=== PATIENT | female | born 1995 | race Caucasian/White ===

== ENCOUNTER 2017-04-21 09:51 | Inpatient (IN) | payer OTHER ==
[2017-04-21 10:58] VITALS: BMI 32.8
--- NOTE | 2017-04-21 13:38 | HP ---
COWS - Scale Resting Pulse: 2= [place] 101-120 Sweatin=Flushed/Facial Moisture Restless Observation: 3= Extraneous Movement Pupil Size: 0= Normal to Room Light Bone or Joint Aches: 2= Severe Diffuse Aches Runny Nose/ Eye Tearin= None GI Upset > 30mins: 2= Nausea/Diarrhea Tremor Observation: 2= Slight Tremor Visible Yawning Observation: 1= 1-2x During Session Anxiety or Irritability: 2=Irritable/Anxious Goose Flesh Skin: 0=Smooth Skin COWS Score: 16 CIWA Score - CIWA Score Nausea/Vomitin Muscle Tremors: 4-Moderate,w/Arms Extend Anxiety: 4-Mod. Anxious/Guarded Agitation: 4-Moderately Restless Paroxysmal Sweats: 3 Orientation: 0-Oriented Tacttile Disturbances: 1-Very Mild Itch/Numbness Auditory Disturbances: 0-None Visual Disturbances: 0-None Headache: 1-Very Mild CIWA-Ar Total Score: 20 Admission ROS [facility] - HPI Chief Complaint: I need help, I'm drinking and using heroin too much. I have to stop using. Allergies/Adverse Reactions: Allergies Allergy/AdvReac Type Severity Reaction Status Date / Time Fish Containing Products Allergy Severe Hives Verified 04/21/17 12:20 No Known Drug Allergies Allergy Verified 01/05/15 10:50 Latex, Natural Rubber AdvReac Verified 01/04/15 19:53 History of Present Illness: 22 y/o woman, single (no children), unemployed, domiciled at an apartment owned by her parent, presented to [facility] requesting detox then rehab from alcohol and opioid dependence. Patient stated she was seen in ER at [facility] couple days ago due to withdrawal symptoms and was given methadone 10mg PO once and klonopin 1mg then was discharged. Patient is requesting rehab here at [facility] after she completes detox. As per patient, she has been drinking and using drugs with her boyfriend (boyfriend's parent sent him away to rehab and she doesn't know his whereabouts) since age 18 or 19 and also use with friends. She reports 4 previous detox with last detox 12/2015 at [facility] x 5 days and then transferred to [facility] 28 day rehab. She reports feeling anxious and depressed since start drinking and using drugs and requesting to see a psychiatrist. Exam Limitations: No Limitations - Ebola screening Have you traveled outside of the country in the last 21 days: No (N) Have you had contact with anyone from an Ebola affected area: No Have you been sick,other than usual withdrawal symptoms: No Do you have a fever: No - Review of Systems Constitutional: Chills, Loss of Appetite, Changes in sleep EENT: reports: Tearing Respiratory: reports: No Symptoms reported Cardiac: reports: No Symptoms Reported GI: reports: Diarrhea, Nausea, Poor Appetite : reports: No Symptoms Reported Musculoskeletal: reports: Back Pain, Joint Pain Integumentary: reports: Bruising (bruising righy forearm from blood drawing. Always bruise after blood draw) Neuro: reports: Headache, Tremors Endocrine: reports: No Symptoms Reported Hematology: reports: Anemia, Easy Bleeding Psychiatric: reports: Anxious, Depressed Patient History - Patient Medical History Hx Anemia: Yes Hx Asthma: No Hx Chronic Obstructive Pulmonary Disease (COPD): No Hx Cancer: No Hx Cardiac Disorders: No Hx Congestive Heart Failure: No Hx Hypertension: No Hx Hypercholesterolemia: No Hx Pacemaker: No HX Cerebrovascular Accident: No Hx Seizures: No Hx Dementia: No Hx Diabetes: No Hx Gastrointestinal Disorders: No Hx Liver Disease: No Hx Genitourinary Disorders: No Hx Sexually Transmitted Disorders: No Hx Renal Disease (ESRD): No Hx Thyroid Disease: No Hx Human Immunodeficiency Virus (HIV): No Hx Hepatitis C: No Hx Depression: Yes (depressed for a while since using drugs) Hx Suicide Attempt: No Hx Bipolar Disorder: No Hx Schizophrenia: No - Patient Surgical History Past Surgical History: Yes Hx Neurologic Surgery: No Hx Cataract Extraction: No Hx Cardiac Surgery: No Hx Lung Surgery: No Hx Breast Surgery: No Hx Breast Biopsy: No Hx Abdominal Surgery: No Hx Appendectomy: No Hx Cholecystectomy: No Hx Genitourinary Surgery: Yes (left kidney stent placement 08/2014 for kidney stones, removed in 1-2 wks) Hx Section: No Hx Orthopedic Surgery: No Hx Hysterectomy: No Anesthesia Reaction: No - PPD History Previous Implant?: Yes Documented Results: Negative w/o proof Implanted On Prior R Admission?: Yes Date: 01/06/15 PPD to be Administered?: Yes - Reproductive History Last Menstrual Period: 03/31/17 (has no children) Patient : No - Smoking Cessation Smoking history: Current every day smoker Have you smoked in the past 12 months: Yes Aproximately how many cigarettes per day: 20 Hx Chewing Tobacco Use: No Initiated information on smoking cessation: Yes 'Breaking Loose' booklet given: 04/21/17 - Substance & Tx. History Hx Substance Use: Yes Substance Use Type: Alcohol, Opiates - Substances Abused Heroin Route: Inhalation Frequency: Daily Amount used: 20 BAGS Age of first use: 18 Date of Last Use: 04/21/17 Alcohol Route: Oral Frequency: Daily Amount used: 1-2 BOTTLES WINE Age of first use: 12 Date of Last Use: 04/20/17 Family Disease History - Family Disease History Family Disease History: CA: Grandparent (maternal grandfather from lymphoma; maternal grandmother survivor of breast cancer), Father (lymphoma), Mother (breast cancer x 2 (survivor)) Admission Physical Exam [facility] - Vital Signs Vital Signs: Vital Signs - 24 hr 04/21/17 10:55 Temperature 97.3 F L Pulse Rate 112 H Respiratory 18 Rate Blood Pressure 114/73 - Physical General Appearance: Yes: Within Normal Limits, No Apparent Distress, Appropriately Dressed HEENTM: Yes: Within Normal Limits, Hearing grossly Normal Respiratory: Yes: Within Normal Limits, Chest Non-Tender, Lungs Clear, Normal Breath Sounds Neck: Yes: Within Normal Limits Breast: Yes: Within Normal Limits Cardiology: Yes: S1, S2, Tachycardia (apical rate 108 bpm) Abdominal: Yes: Within Normal Limits, Normal Bowel Sounds, Non Tender, Soft Genitourinary: Yes: Within Normal Limits Back: Yes: Within Normal Limits Musculoskeletal: Yes: Within Normal Limits, full range of Motion, Gait Steady Extremities: Yes: Normal Range of Motion, Tremors Neurological: Yes: Within Normal Limits, 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, Fully Oriented, Alert Integumentary: Yes: Normal Color (except bruising noted to right forearm from blood draw at [facility] couple days ago as per patient) - Diagnostic (1) Anemia Current Visit: Yes Status: Chronic (2) Opioid dependence, uncomplicated Current Visit: Yes Status: Acute (3) Alcohol dependence with uncomplicated withdrawal Current Visit: Yes Status: Acute (4) Nicotine dependence Current Visit: Yes Status: Chronic Cleared for Admission [facility] - Detox or Rehab [facility] Level of Care: Medically Managed Detox Regimen/Protocol: Methadone/Librium S Breath Alcohol Content Breath Alcohol Content: 0 Urine Pregancy Test - Result Urine Test Results: Negative- NO Line Present Urine Drug Screen - Results Drug Screen Negative: No Urine Drug Screen Results: OPI-Opiates, BZO-Benzodiazepines, MTD-Methadone, TCA- Tricyclic Antidepress
[2017-04-21] MEDS ORDERED: MENTHOL/PHENOL 1 EACH UD MM PRN (14:19)
[2017-04-21] MEDS ORDERED: guaiFENesin/D-METHORPHAN HB 10 ML UNIT-DOSE CUPS PO PRN (14:19)
[2017-04-21] MEDS ORDERED: LOPERAMIDE HCL 2 MG CAPSULE PO PRN (14:19)
[2017-04-21] MEDS ORDERED: MAGNESIUM HYDROX 2400MG/30ML ORAL SUSPENSION 30 ML CUP PO PRN (14:19)
[2017-04-21] MEDS ORDERED: MAGNESIUM CITRATE 300 ML BOTTLE PO PRN (14:19)
[2017-04-21] MEDS ORDERED: ACETAMINOPHEN 325 MG TABLET (FP) PO PRN (14:19)
[2017-04-21] MEDS ORDERED: P-EPHED 60MG/TRIPROLIDI 2.5MG TABLET PO PRN (14:19)
[2017-04-21] MEDS ORDERED: MAG HYDROX/AL HYDROX/SIMETH 30 ML UNIT-DOSE CUP PO PRN (14:19)
[2017-04-21] MEDS ORDERED: ONDANSETRON *ODT* 4 MG TABLET SL PRN (14:34)
[2017-04-21] MEDS ORDERED: METHADONE HCL 10 MG TABLET (FOR DETOX USE ONLY) PO ONE ×2 (14:54→23:00)
[2017-04-21] MEDS: NICOTINE 21 MG/24 HOURS TOPICAL PATCH TD SCH (15:01)
[2017-04-21] MEDS: IBUPROFEN 400 MG TABLET (FP) PO PRN (15:06)
[2017-04-21] MEDS: chlordiazePOXIDE HCL 25 MG CAPSULE PO PRN (15:06)
[2017-04-21] MEDS: chlordiazePOXIDE HCL 25 MG CAPSULE PO SCH ×2 (17:16→22:14)
[2017-04-21] MEDS: hydrOXYzine PAMOATE 25 MG CAPSULE (FP) PO PRN (18:30)
[2017-04-21] MEDS: NICOTINE POLACRILEX 2 MG GUM BUC PRN (21:20)
[2017-04-21] MEDS: THIAMINE HCL 100 MG TABLET (FP) PO SCH (22:14)
[2017-04-21 23:13] LABS: URINE APPEARANCE CLEAR; URINE BILIRUBIN NEGATIVE (NEGATIVE); URINE BLOOD NEGATIVE (NEGATIVE); URINE COLOR STRAW; URINE GLUCOSE (UA) NEGATIVE (NEGATIVE); URINE KETONE 1+ (NEGATIVE); URINE LEUK ESTERASE NEGATIVE (NEGATIVE); URINE NITRITE NEGATIVE (NEGATIVE); URINE PROTEIN NEGATIVE (NEGATIVE); URINE UROBILINOGEN NEGATIVE mg/dL (0.2-1.0)
[2017-04-22] MEDS: chlordiazePOXIDE HCL 25 MG CAPSULE PO SCH ×4 (05:56→22:38)
[2017-04-22] MEDS ORDERED: METHADONE HCL 10 MG TABLET (FOR DETOX USE ONLY) PO SCH (10:00)
[2017-04-22 10:42] LABS: HEMATOCRIT 40.5 % (32.4-45.2); HEMOGLOBIN 13.4 GM/dL (10.7-15.3); MCH 29.1 pg (25.7-33.7); MCHC 33.1 g/dl (32.0-36.0); MEAN CELL VOLUME 87.9 fl (80-96); MEAN PLT VOLUME 10.1 fl (7.5-11.1); PLATELET COUNT 315 K/MM3 (134-434); RDW 13.1 % (11.6-15.6); WHITE BLOOD COUNT 9.5 K/mm3 (4.0-10.0)
[2017-04-22] MEDS: PRENATAL VITAMINS W/ FOLIC ACID TABLET (FP) PO SCH (10:50)
[2017-04-22] MEDS: NICOTINE 21 MG/24 HOURS TOPICAL PATCH TD SCH (10:52)
[2017-04-22 10:53] LABS: CHLORIDE 104 mmol/L (98-107); POTASSIUM 3.5 mmol/L (3.5-5.1); SODIUM 138 mmol/L (136-145)
[2017-04-22] MEDS: NICOTINE POLACRILEX 2 MG GUM BUC PRN ×2 (10:54→22:43)
[2017-04-22 11:01] LABS: ALBUMIN 4.3 g/dl (3.4-5.0); ALK PHOS 55 U/L (45-117); ANION GAP 12 (8-16); BILIRUBIN,TOTAL 0.5 mg/dL (0.2-1.0); BLOOD UREA NITROGEN 15 mg/dL (7-18); CALCIUM 8.9 mg/dL (8.5-10.1); CO2 22 mmol/L (21-32); CREATININE 0.8 mg/dL (0.55-1.02); GLUCOSE,RANDOM 112 mg/dL (74-106); SGOT/AST 16 U/L (15-37); SGPT/ALT 18 U/L (12-78)
--- NOTE | 2017-04-22 13:30 | PN ---
[facility] CIWA - CIWA Score Nausea/Vomitin Muscle Tremors: 3 Anxiety: 3 Agitation: 3 Paroxysmal Sweats: 3 Orientation: 0-Oriented Tacttile Disturbances: 0-None Auditory Disturbances: 0-None Visual Disturbances: 0-None Headache: 0-None Present CIWA-Ar Total Score: 15 S COWS - Scale Resting Pulse: 0= [place] 80 or Below Sweatin=Flushed/Facial Moisture Restless Observation: 1= Difficult to Sit Still Pupil Size: 0= Normal to Room Light Bone or Joint Aches: 1= Mild Discomfort Runny Nose/ Eye Tearin= Nasal Congestion GI Upset > 30mins: 1= Stomach Cramp Tremor Observation of Outstretched Hands: 2= Slight Tremor Visible Yawning Observation: 0= None Anxiety or Irritability: 2=Irritable/Anxious Goose Flesh Skin: 0=Smooth Skin COWS Score: 10 [facility] Progress Note (SOAP) Subjective: achy gassy, requesting pati ok tremors Objective: 04/22/17 13:33 Vital Signs Temperature 98.2 F 04/22/17 10:42 Pulse Rate 79 04/22/17 10:42 Respiratory Rate 18 04/22/17 10:42 Blood Pressure 125/80 04/22/17 10:42 O2 Sat by Pulse Oximetry (%) Laboratory Last Values WBC 9.5 K/mm3 (4.0-10.0) 04/22/17 06:00 RBC 4.60 M/mm3 (3.60-5.2) 04/22/17 06:00 Hgb 13.4 GM/dL (10.7-15.3) 04/22/17 06:00 Hct 40.5 % (32.4-45.2) 04/22/17 06:00 MCV 87.9 fl (80-96) 04/22/17 06:00 MCH 29.1 pg (25.7-33.7) 04/22/17 06:00 MCHC 33.1 g/dl (32.0-36.0) 04/22/17 06:00 RDW 13.1 % (11.6-15.6) 04/22/17 06:00 Plt Count 315 K/MM3 (134-434) 04/22/17 06:00 MPV 10.1 fl (7.5-11.1) 04/22/17 06:00 Sodium 138 mmol/L (136-145) 04/22/17 06:00 Potassium 3.5 mmol/L (3.5-5.1) 04/22/17 06:00 Chloride 104 mmol/L (98-107) 04/22/17 06:00 Carbon Dioxide 22 mmol/L (21-32) 04/22/17 06:00 Anion Gap 12 (8-16) 04/22/17 06:00 BUN 15 mg/dL (7-18) 04/22/17 06:00 Creatinine 0.8 mg/dL (0.55-1.02) 04/22/17 06:00 Creat Clearance w eGFR > 60 (>60) 04/22/17 06:00 Random Glucose 112 mg/dL (74-106) H 04/22/17 06:00 Calcium 8.9 mg/dL (8.5-10.1) 04/22/17 06:00 Total Bilirubin 0.5 mg/dL (0.2-1.0) D 04/22/17 06:00 AST 16 U/L (15-37) D 04/22/17 06:00 ALT 18 U/L (12-78) 04/22/17 06:00 Alkaline Phosphatase 55 U/L (45-117) 04/22/17 06:00 Total Protein 8.0 g/dl (6.4-8.2) 04/22/17 06:00 Albumin 4.3 g/dl (3.4-5.0) 04/22/17 06:00 Urine Color Straw 04/21/17 21:00 Urine Appearance Clear 04/21/17 21:00 Urine pH 5.0 (5.0-8.0) 04/21/17 21:00 Ur Specific [place] 1.005 (1.001-1.035) 04/21/17 21:00 Urine Protein Negative (NEGATIVE) 04/21/17 21:00 Urine Glucose (UA) Negative (NEGATIVE) 04/21/17 21:00 Urine Ketones 1+ (NEGATIVE) H 04/21/17 21:00 Urine Blood Negative (NEGATIVE) 04/21/17 21:00 Urine Nitrite Negative (NEGATIVE) 04/21/17 21:00 Urine Bilirubin Negative (NEGATIVE) 04/21/17 21:00 Urine Urobilinogen Negative mg/dL (0.2-1.0) 04/21/17 21:00 Ur Leukocyte Esterase Negative (NEGATIVE) 04/21/17 21:00 labs noted Assessment: 04/22/17 13:34 withdrawal sx Plan: continue detox
[2017-04-22] MEDS: chlordiazePOXIDE HCL 25 MG CAPSULE PO PRN ×2 (15:15→20:01)
--- NOTE | 2017-04-22 17:03 | EKG ---
Test Reason : Blood Pressure : / mmHG Vent. Rate : 105 BPM Atrial Rate : 105 BPM P-R Int : 134 ms QRS Dur : 076 ms QT Int : 346 ms P-R-T Axes : 065 021 031 degrees QTc Int : 457 ms SINUS TACHYCARDIA OTHERWISE NORMAL ECG NO PREVIOUS ECGS AVAILABLE Confirmed by BROOKE GONZALEZ MD ([id number]) on 04/22/2017 5:03:01 PM Referred By: Confirmed By:BROOKE GONZALEZ MD
[2017-04-22] MEDS: hydrOXYzine PAMOATE 25 MG CAPSULE (FP) PO PRN ×2 (17:43→22:40)
--- NOTE | 2017-04-22 18:01 | CONSULT ---
[facility] Psychiatric Consult - Data Date of interview: 04/22/17 Admission source: [facility] Identifying data: Readmission to [facility] for this 22 y/o female seeking detox treatment on for alcohol and heroin dependence.Patient is singlewithout children,unemployed and supported by her parents. Substance Abuse History: Smoking history: Current every day smoker. Have you smoked in the past 12 months: Yes. Aproximately how many cigarettes per day: 20. Hx Chewing Tobacco Use: No. Initiated information on smoking cessation: Yes. 'Breaking Loose' booklet given: 04/21/17. - Substance & Tx. History. Hx Substance Use: Yes. Substance Use Type: Alcohol, Opiates. - Substances Abused. Heroin. Route: Inhalation. Frequency: Daily. Amount used: 20 BAGS. Age of first use: 18. Date of Last Use: 04/21/17. Alcohol. Route: Oral. Frequency: Daily. Amount used: 1-2 BOTTLES WINE. Age of first use: 12. Date of Last Use: 04/20/17 Medical History: Anemia and a recent history of renal stent placement (2014) for kidney stones (no longer in place). Psychiatric History: No history of psychiatric hospitalizations.Patient denies suicide attempts.No prior contact with a psychiatric OPD care provider. Physical/Sexual Abuse/Trauma History: Patient denies. Additional Comment: Urine Drug Screen Results: OPI-Opiates, BZO-Benzodiazepines , MTD-Methadone, TCA-Tricyclic Antidepressant.Noted. Mental Status Exam - Mental Status Exam Alert and Oriented to: Time, Place, Person Cognitive Function: Good Patient Appearance: Well Groomed (short stature,overweight; appears much younger than stated age) Mood: Anxious (mildly), Hopeful Affect: Appropriate, Normal Range Patient Behavior: Fatigued, Appropriate, Cooperative Speech Pattern: Clear, Appropriate Voice Loudness: Normal Thought Process: Intact, Goal Oriented Thought Disorder: Not Present Hallucinations: Denies Suicidal Ideation: Denies Homicidal Ideation: Denies Insight/Judgement: Poor Sleep: Poorly, Difficulty falling asleep Appetite: Fair Muscle strength/Tone: Normal Gait/Station: Normal Psychiatric Findings - Problem List ([place] 1, 2,3) (1) Alcohol dependence with uncomplicated withdrawal Current Visit: Yes Status: Acute (2) Opioid dependence, uncomplicated Current Visit: Yes Status: Acute (3) Nicotine dependence Current Visit: Yes Status: Acute (4) Drug-induced mood disorder Current Visit: Yes Status: Chronic (5) Insomnia Current Visit: Yes Status: Acute - Initial Treatment Plan Initial Treatment Plan: Psychoeducation and support provided in session.Sleep hygiene recommended.Detoxification in progress.Ambien 5 mg po hs prn.Ordered.Patient made aware of maximo of parasomnias (sleep-walking).Consent ( verbal) given for this careplan.Observation.
[2017-04-22] MEDS: ZOLPIDEM TARTRATE 5 MG TABLET PO PRN (22:38)
[2017-04-22] MEDS: IBUPROFEN 400 MG TABLET (FP) PO PRN (22:38)
[2017-04-22] MEDS: THIAMINE HCL 100 MG TABLET (FP) PO SCH (22:39)
[2017-04-23] MEDS: chlordiazePOXIDE HCL 25 MG CAPSULE PO SCH ×2 (05:43→10:32)
[2017-04-23] MEDS: PRENATAL VITAMINS W/ FOLIC ACID TABLET (FP) PO SCH (10:31)
[2017-04-23] MEDS: METHADONE HCL 5 MG TABLET (FOR DETOX USE ONLY) PO SCH (10:32)
[2017-04-23] MEDS: NICOTINE 21 MG/24 HOURS TOPICAL PATCH TD SCH (10:33)
--- NOTE | 2017-04-23 11:07 | PN ---
[facility] CIWA - CIWA Score Nausea/Vomitin-No Nausea/No Vomiting Muscle Tremors: 3 Anxiety: 3 Agitation: 3 Paroxysmal Sweats: 1-Minimal Palms Moist Orientation: 0-Oriented Tacttile Disturbances: 0-None Auditory Disturbances: 0-None Visual Disturbances: 0-None Headache: 0-None Present CIWA-Ar Total Score: 10 [facility] COWS - Scale Resting Pulse: 1= [place] 81-100 Sweatin= Chills/Flushing Restless Observation: 0= Sits Still Pupil Size: 0= Normal to Room Light Bone or Joint Aches: 1= Mild Discomfort Runny Nose/ Eye Tearin= Nasal Congestion GI Upset > 30mins: 1= Stomach Cramp Tremor Observation of Outstretched Hands: 1= Tremor [place], Not Seen Yawning Observation: 0= None Anxiety or Irritability: 1=Feels Anxious/Irritable Goose Flesh Skin: 0=Smooth Skin COWS Score: 7 S Progress Note (SOAP) Subjective: sweat general body ache nasal congestion mild gi upset Objective: 04/23/17 11:08 Vital Signs Temperature 99.5 F 04/23/17 10:00 Pulse Rate 92 H 04/23/17 10:00 Respiratory Rate 20 04/23/17 10:00 Blood Pressure 102/58 04/23/17 10:00 O2 Sat by Pulse Oximetry (%) Laboratory Last Values WBC 9.5 K/mm3 (4.0-10.0) 04/22/17 06:00 RBC 4.60 M/mm3 (3.60-5.2) 04/22/17 06:00 Hgb 13.4 GM/dL (10.7-15.3) 04/22/17 06:00 Hct 40.5 % (32.4-45.2) 04/22/17 06:00 MCV 87.9 fl (80-96) 04/22/17 06:00 MCH 29.1 pg (25.7-33.7) 04/22/17 06:00 MCHC 33.1 g/dl (32.0-36.0) 04/22/17 06:00 RDW 13.1 % (11.6-15.6) 04/22/17 06:00 Plt Count 315 K/MM3 (134-434) 04/22/17 06:00 MPV 10.1 fl (7.5-11.1) 04/22/17 06:00 Sodium 138 mmol/L (136-145) 04/22/17 06:00 Potassium 3.5 mmol/L (3.5-5.1) 04/22/17 06:00 Chloride 104 mmol/L (98-107) 04/22/17 06:00 Carbon Dioxide 22 mmol/L (21-32) 04/22/17 06:00 Anion Gap 12 (8-16) 04/22/17 06:00 BUN 15 mg/dL (7-18) 04/22/17 06:00 Creatinine 0.8 mg/dL (0.55-1.02) 04/22/17 06:00 Creat Clearance w eGFR > 60 (>60) 04/22/17 06:00 Random Glucose 112 mg/dL (74-106) H 04/22/17 06:00 Calcium 8.9 mg/dL (8.5-10.1) 04/22/17 06:00 Total Bilirubin 0.5 mg/dL (0.2-1.0) D 04/22/17 06:00 AST 16 U/L (15-37) D 04/22/17 06:00 ALT 18 U/L (12-78) 04/22/17 06:00 Alkaline Phosphatase 55 U/L (45-117) 04/22/17 06:00 Total Protein 8.0 g/dl (6.4-8.2) 04/22/17 06:00 Albumin 4.3 g/dl (3.4-5.0) 04/22/17 06:00 Urine Color Straw 04/21/17 21:00 Urine Appearance Clear 04/21/17 21:00 Urine pH 5.0 (5.0-8.0) 04/21/17 21:00 Ur Specific [place] 1.005 (1.001-1.035) 04/21/17 21:00 Urine Protein Negative (NEGATIVE) 04/21/17 21:00 Urine Glucose (UA) Negative (NEGATIVE) 04/21/17 21:00 Urine Ketones 1+ (NEGATIVE) H 04/21/17 21:00 Urine Blood Negative (NEGATIVE) 04/21/17 21:00 Urine Nitrite Negative (NEGATIVE) 04/21/17 21:00 Urine Bilirubin Negative (NEGATIVE) 04/21/17 21:00 Urine Urobilinogen Negative mg/dL (0.2-1.0) 04/21/17 21:00 Ur Leukocyte Esterase Negative (NEGATIVE) 04/21/17 21:00 RPR Titer Nonreactive (NONREACTIVE) 04/22/17 06:00 lab noted Assessment: 04/23/17 11:08 withdrawal sx Plan: continue detox
[2017-04-23] MEDS: chlordiazePOXIDE HCL 25 MG CAPSULE PO PRN (14:25)
[2017-04-23] MEDS: chlordiazePOXIDE 5 MG CAPSULE PO SCH ×2 (17:25→22:25)
[2017-04-23] MEDS: hydrOXYzine PAMOATE 25 MG CAPSULE (FP) PO PRN (20:26)
[2017-04-23] MEDS: ZOLPIDEM TARTRATE 5 MG TABLET PO PRN (22:25)
[2017-04-23] MEDS: IBUPROFEN 400 MG TABLET (FP) PO PRN (22:25)
[2017-04-23] MEDS: THIAMINE HCL 100 MG TABLET (FP) PO SCH (22:26)
[2017-04-23] MEDS: NICOTINE POLACRILEX 2 MG GUM BUC PRN (22:26)
[2017-04-24] MEDS: chlordiazePOXIDE 5 MG CAPSULE PO SCH ×2 (05:58→10:25)
[2017-04-24] MEDS: hydrOXYzine PAMOATE 25 MG CAPSULE (FP) PO PRN ×2 (09:07→14:29)
[2017-04-24] MEDS: NICOTINE POLACRILEX 2 MG GUM BUC PRN ×2 (09:08→22:30)
[2017-04-24] MEDS: PRENATAL VITAMINS W/ FOLIC ACID TABLET (FP) PO SCH (10:25)
[2017-04-24] MEDS: METHADONE HCL 5 MG TABLET (FOR DETOX USE ONLY) PO SCH (10:25)
[2017-04-24] MEDS: NICOTINE 21 MG/24 HOURS TOPICAL PATCH TD SCH (10:26)
[2017-04-24] MEDS ORDERED: cloNIDine HCL 0.1 MG TABLET PO ONE (10:29)
--- NOTE | 2017-04-24 10:33 | PN ---
S Progress Note (SOAP) Subjective: ALERT,IRRITABLE,ANXIOUS,INTERRUPTED SLEEP,PAIN IN THE BODY AND BACK,TREMOR Objective: 04/24/17 10:31 Vital Signs Temperature 98.1 F 04/24/17 06:00 Pulse Rate 90 04/24/17 06:00 Respiratory Rate 16 04/24/17 06:00 Blood Pressure 104/70 04/24/17 06:00 O2 Sat by Pulse Oximetry (%) Assessment: 04/24/17 10:32 WITHDRAWAL SYMPTOM Plan: CONTINUE DETOX,FLEXERIL 10 MGS PO TID,CLONIDINE 0.1 MG PO BID,CONTINUE DETOX
[2017-04-24] MEDS: CYCLOBENZAPRINE HCL 10 MG TABLET (FP) PO SCH ×2 (14:29→22:29)
[2017-04-24] MEDS: chlordiazePOXIDE HCL 10 MG CAPSULE PO SCH ×2 (18:00→22:30)
[2017-04-24] MEDS: cloNIDine HCL 0.1 MG TABLET PO SCH (22:29)
[2017-04-24] MEDS: IBUPROFEN 400 MG TABLET (FP) PO PRN (22:29)
[2017-04-24] MEDS: ZOLPIDEM TARTRATE 5 MG TABLET PO PRN (22:29)
[2017-04-24] MEDS: THIAMINE HCL 100 MG TABLET (FP) PO SCH (22:30)
[2017-04-25] MEDS: CYCLOBENZAPRINE HCL 10 MG TABLET (FP) PO SCH ×2 (05:59→14:41)
[2017-04-25] MEDS: chlordiazePOXIDE HCL 10 MG CAPSULE PO SCH ×2 (05:59→10:32)
[2017-04-25] MEDS ORDERED: METHADONE HCL 10 MG TABLET (FOR DETOX USE ONLY) PO SCH (10:00)
[2017-04-25] MEDS: PRENATAL VITAMINS W/ FOLIC ACID TABLET (FP) PO SCH (10:32)
[2017-04-25] MEDS: cloNIDine HCL 0.1 MG TABLET PO SCH (10:32)
[2017-04-25] MEDS: NICOTINE 21 MG/24 HOURS TOPICAL PATCH TD SCH (10:32)
--- NOTE | 2017-04-25 11:36 | PN ---
[facility] Progress Note (SOAP) Subjective: anxiety sweats chills Objective: 04/25/17 11:35 Vital Signs Temperature 98.2 F 04/25/17 10:38 Pulse Rate 98 H 04/25/17 10:38 Respiratory Rate 20 04/25/17 10:38 Blood Pressure 107/61 04/25/17 10:38 O2 Sat by Pulse Oximetry (%) aaox3 ambulating no acute distress Assessment: 04/25/17 11:36 withdrawal sx Plan: continue detox increase fluids d/c in am
[2017-04-25] MEDS: hydrOXYzine PAMOATE 25 MG CAPSULE (FP) PO PRN (14:41)
[2017-04-25] MEDS: NICOTINE POLACRILEX 2 MG GUM BUC PRN (14:43)
[2017-04-25 14:48] VITALS: BP 114/56; PULSE 89; TEMP 97.1
--- NOTE | 2017-04-25 22:02 | DS ---
[facility] Detox Discharge Summary Admission Date: 04/21/17 Discharge Date: 04/25/17 - History Present History: Alcohol Dependence, Opioid Dependence Pertinent Past History: patient insists to leave the detox refuses to wait face to face with the provider - Physical Exam Results Vital Signs: Vital Signs Temperature 97.1 F L 04/25/17 14:48 Pulse Rate 89 04/25/17 14:48 Respiratory Rate 18 04/25/17 14:48 Blood Pressure 114/56 04/25/17 14:48 O2 Sat by Pulse Oximetry (%) Pertinent Admission Physical Exam Findings: withdrawal sx Vital Signs Temperature 97.1 F L 04/25/17 14:48 Pulse Rate 89 04/25/17 14:48 Respiratory Rate 18 04/25/17 14:48 Blood Pressure 114/56 04/25/17 14:48 O2 Sat by Pulse Oximetry (%) Laboratory Last Values WBC 9.5 K/mm3 (4.0-10.0) 04/22/17 06:00 RBC 4.60 M/mm3 (3.60-5.2) 04/22/17 06:00 Hgb 13.4 GM/dL (10.7-15.3) 04/22/17 06:00 Hct 40.5 % (32.4-45.2) 04/22/17 06:00 MCV 87.9 fl (80-96) 04/22/17 06:00 MCH 29.1 pg (25.7-33.7) 04/22/17 06:00 MCHC 33.1 g/dl (32.0-36.0) 04/22/17 06:00 RDW 13.1 % (11.6-15.6) 04/22/17 06:00 Plt Count 315 K/MM3 (134-434) 04/22/17 06:00 MPV 10.1 fl (7.5-11.1) 04/22/17 06:00 Sodium 138 mmol/L (136-145) 04/22/17 06:00 Potassium 3.5 mmol/L (3.5-5.1) 04/22/17 06:00 Chloride 104 mmol/L (98-107) 04/22/17 06:00 Carbon Dioxide 22 mmol/L (21-32) 04/22/17 06:00 Anion Gap 12 (8-16) 04/22/17 06:00 BUN 15 mg/dL (7-18) 04/22/17 06:00 Creatinine 0.8 mg/dL (0.55-1.02) 04/22/17 06:00 Creat Clearance w eGFR > 60 (>60) 04/22/17 06:00 Random Glucose 112 mg/dL (74-106) H 04/22/17 06:00 Calcium 8.9 mg/dL (8.5-10.1) 04/22/17 06:00 Total Bilirubin 0.5 mg/dL (0.2-1.0) D 04/22/17 06:00 AST 16 U/L (15-37) D 04/22/17 06:00 ALT 18 U/L (12-78) 04/22/17 06:00 Alkaline Phosphatase 55 U/L (45-117) 04/22/17 06:00 Total Protein 8.0 g/dl (6.4-8.2) 04/22/17 06:00 Albumin 4.3 g/dl (3.4-5.0) 04/22/17 06:00 Urine Color Straw 04/21/17 21:00 Urine Appearance Clear 04/21/17 21:00 Urine pH 5.0 (5.0-8.0) 04/21/17 21:00 Ur Specific [place] 1.005 (1.001-1.035) 04/21/17 21:00 Urine Protein Negative (NEGATIVE) 04/21/17 21:00 Urine Glucose (UA) Negative (NEGATIVE) 04/21/17 21:00 Urine Ketones 1+ (NEGATIVE) H 04/21/17 21:00 Urine Blood Negative (NEGATIVE) 04/21/17 21:00 Urine Nitrite Negative (NEGATIVE) 04/21/17 21:00 Urine Bilirubin Negative (NEGATIVE) 04/21/17 21:00 Urine Urobilinogen Negative mg/dL (0.2-1.0) 04/21/17 21:00 Ur Leukocyte Esterase Negative (NEGATIVE) 04/21/17 21:00 RPR Titer Nonreactive (NONREACTIVE) 04/22/17 06:00 lab noted - Treatment Hospital Course: Detox Protocol Followed, Responded well - Medication Discharge Medications: Ambulatory Orders NK [No Known Home Medication] 04/21/17 - AMA Did Patient Leave Against Medical Advice: Yes
[2017-04-26] MEDS ORDERED: METHADONE HCL 5 MG TABLET (FOR DETOX USE ONLY) PO SCH (06:00)
== END 2017-04-25 19:25 | disposition left against medical advice (07) | DRG 770 ==
LOC: YASAS 09:51 → Y6N 13:15
PROVIDERS: ADMIT Internal Medicine; ATTEND Internal Medicine
PROC: HZ2ZZZZ Detoxification Services for Substance Abuse Treatment (ICD-10-PCS; principal; 2017-04-21)
DX: F11.23 Opioid dependence with withdrawal (principal); F10.230 Alcohol dependence with withdrawal, uncomplicated; F12.20 Cannabis dependence, uncomplicated; F17.210 Nicotine dependence, cigarettes, uncomplicated; F19.24 Other psychoactive substance dependence with psychoactive substance-induced mood disorder; R00.0 Tachycardia, unspecified; G47.00 Insomnia, unspecified; D64.9 Anemia, unspecified; Z96.0 Presence of urogenital implants; Z91.013 Allergy to seafood; Z91.040 Latex allergy status
CPT/HCPCS: 36415; 80053; 81003; 85027; 86593; 93005; 93010

== ENCOUNTER 2017-05-15 18:11 | Inpatient (IN) | payer OTHER ==
[2017-05-15 19:03] VITALS: BMI 31.1
--- NOTE | 2017-05-15 21:06 | HP ---
COWS - Scale Resting Pulse: 1= [place] 81-100 Sweatin=Flushed/Facial Moisture Restless Observation: 1= Difficult to Sit Still Pupil Size: 1= Pupils >than Normal Bone or Joint Aches: 4=Acute Joint/Muscle Pain Runny Nose/ Eye Tearin= Runny Nose/Eyes GI Upset > 30mins: 2= Nausea/Diarrhea (nausea, no vomiting) Tremor Observation: 2= Slight Tremor Visible Yawning Observation: 1= 1-2x During Session Anxiety or Irritability: 2=Irritable/Anxious Goose Flesh Skin: 0=Smooth Skin COWS Score: 18 Admission ROS [facility] Chief Complaint: Heroin withdrawal symptoms Allergies/Adverse Reactions: Allergies Allergy/AdvReac Type Severity Reaction Status Date / Time Fish Containing Products Allergy Severe Hives Verified 05/15/17 20:09 No Known Drug Allergies Allergy Verified 05/15/17 20:09 Latex, Natural Rubber AdvReac Verified 05/15/17 20:09 History of Present Illness: 22 years old female with 3 years of heroin dependence is seeking admission to detox. Patient has been in previous detox and reports insignificant period of sobriety. Patient has past medical history of anemia, anxiety and depression. She denies suicide attempt and suicidal ideation at this time. Exam Limitations: No Limitations - Ebola screening Have you traveled outside of the country in the last 21 days: No Have you had contact with anyone from an Ebola affected area: No Have you been sick,other than usual withdrawal symptoms: No Do you have a fever: No - Review of Systems Constitutional: Chills, Loss of Appetite, Malaise, Night Sweats, Changes in sleep EENT: reports: No Symptoms Reported Respiratory: reports: No Symptoms reported Cardiac: reports: No Symptoms Reported GI: reports: Nausea, Poor Appetite, Poor Fluid Intake, Abdominal cramping : reports: No Symptoms Reported Musculoskeletal: reports: Back Pain, Muscle Pain, Muscle Weakness, Neck Pain Integumentary: reports: Flushing Neuro: reports: Headache, Tingling, Tremors Endocrine: reports: No Symptoms Reported Hematology: reports: No Symptoms Reported Psychiatric: reports: Mood/Affect Appropiate, Orientated x3, Agitated, Anxious Other Systems: Reviewed and Negative Patient History - Patient Medical History Hx Anemia: Yes Hx Asthma: No Hx Chronic Obstructive Pulmonary Disease (COPD): No Hx Cancer: No Hx Cardiac Disorders: No Hx Congestive Heart Failure: No Hx Hypertension: No Hx Hypercholesterolemia: No Hx Pacemaker: No HX Cerebrovascular Accident: No Hx Seizures: No Hx Dementia: No Hx Diabetes: No Hx Gastrointestinal Disorders: No Hx Liver Disease: No Hx Genitourinary Disorders: No Hx Sexually Transmitted Disorders: No Hx Renal Disease (ESRD): No Hx Thyroid Disease: No Hx Human Immunodeficiency Virus (HIV): No Hx Hepatitis C: No Hx Depression: Yes (depressed for a while since using drugs) Hx Suicide Attempt: No (Denies suicidal ideation at this time) Hx Bipolar Disorder: No Hx Schizophrenia: No - Patient Surgical History Past Surgical History: Yes Hx Neurologic Surgery: No Hx Cataract Extraction: No Hx Cardiac Surgery: No Hx Lung Surgery: No Hx Breast Surgery: No Hx Breast Biopsy: No Hx Abdominal Surgery: No Hx Appendectomy: No Hx Cholecystectomy: No Hx Genitourinary Surgery: Yes (left kidney stent placement 08/2014 for kidney stones, removed in 1-2 wks) Hx Section: No Hx Orthopedic Surgery: No Hx Hysterectomy: No Anesthesia Reaction: No - PPD History Previous Implant?: Yes Documented Results: Negative w/proof Date: 04/23/17 PPD to be Administered?: No - Reproductive History Last Menstrual Period: 05/02/17 Patient : No - Smoking Cessation Smoking history: Current every day smoker Have you smoked in the past 12 months: Yes Aproximately how many cigarettes per day: 20 Hx Chewing Tobacco Use: No Initiated information on smoking cessation: Yes 'Breaking Loose' booklet given: 05/15/17 - Substance & Tx. History Hx Alcohol Use: No Hx Substance Use: Yes Substance Use Type: Heroin Hx Substance Use Treatment: Yes ([facility]) - Substances Abused Heroin Route: Inhalation Frequency: Daily Amount used: 20 bags Age of first use: 18 Date of Last Use: 05/14/17 Family Disease History - Family Disease History Family Disease History: CA: Grandparent (maternal grandfather from lymphoma; maternal grandmother survivor of breast cancer), Father (lymphoma), Mother (breast cancer x 2 (survivor)) Admission Physical Exam BHS - Vital Signs Vital Signs: Vital Signs - 24 hr 05/15/17 19:01 Temperature 97.7 F Pulse Rate 98 H Respiratory 18 Rate Blood Pressure 130/84 - Physical General Appearance: Yes: Moderate Distress, Tremorous, Irritable, Sweating, Anxious HEENTM: Yes: EOMI, Normal Voice, PAUL Respiratory: Yes: Lungs Clear, Normal Breath Sounds, No Respiratory Distress Neck: Yes: Supple Breast: Yes: Breast Exam Deferred Cardiology: Yes: Regular Rhythm, Regular Rate, S1, S2 Abdominal: Yes: Normal Bowel Sounds, Soft Genitourinary: Yes: Within Normal Limits Back: Yes: Normal Inspection Musculoskeletal: Yes: Back pain, Muscle Pain Extremities: Yes: Tremors Neurological: Yes: Alert, Normal Mood/Affect Integumentary: Yes: Warm Lymphatic: Yes: Within Normal Limits - Diagnostic (1) Opioid dependence with withdrawal Current Visit: Yes Status: Chronic (2) Anxiety Current Visit: Yes Status: Chronic (3) Depression Current Visit: Yes Status: Chronic (4) Nicotine dependence Current Visit: Yes Status: Chronic Qualifiers: Nicotine product type: cigarettes Substance use status: uncomplicated Qualified Code(s): F17.210 - Nicotine dependence, cigarettes, uncomplicated Cleared for Admission [facility] - Detox or Rehab [facility] Level of Care: Medically Managed Detox Regimen/Protocol: Methadone [facility] Breath Alcohol Content Breath Alcohol Content: 0 Urine Pregancy Test - Result Urine Test Results: Negative- NO Line Present Urine Drug Screen - Results Drug Screen Negative: No Urine Drug Screen Results: OPI-Opiates, BZO-Benzodiazepines
[2017-05-15] MEDS ORDERED: LOPERAMIDE HCL 2 MG CAPSULE PO PRN (21:15)
[2017-05-15] MEDS ORDERED: P-EPHED 60MG/TRIPROLIDI 2.5MG TABLET PO PRN (21:15)
[2017-05-15] MEDS ORDERED: guaiFENesin/D-METHORPHAN HB 10 ML UNIT-DOSE CUPS PO PRN (21:15)
[2017-05-15] MEDS ORDERED: MAGNESIUM HYDROX 2400MG/30ML ORAL SUSPENSION 30 ML CUP PO PRN (21:15)
[2017-05-15] MEDS ORDERED: IBUPROFEN 400 MG TABLET (FP) PO PRN (21:15)
[2017-05-15] MEDS ORDERED: NICOTINE POLACRILEX 2 MG GUM BC PRN (21:15)
[2017-05-15] MEDS ORDERED: MAG HYDROX/AL HYDROX/SIMETH 30 ML UNIT-DOSE CUP PO PRN (21:15)
[2017-05-15] MEDS ORDERED: METHADONE HCL 10 MG TABLET (FOR DETOX USE ONLY) PO ONE ×2 (21:15→23:00)
[2017-05-15] MEDS ORDERED: MAGNESIUM CITRATE 300 ML BOTTLE PO PRN (21:15)
[2017-05-15] MEDS ORDERED: MENTHOL/PHENOL 1 EACH UD MM PRN (21:15)
[2017-05-15] MEDS ORDERED: ACETAMINOPHEN 325 MG TABLET (FP) PO PRN (21:15)
[2017-05-15] MEDS ORDERED: THIAMINE HCL 100 MG TABLET (FP) PO SCH (22:00)
[2017-05-15 23:22] LABS: URINE APPEARANCE CLEAR; URINE BILIRUBIN NEGATIVE (NEGATIVE); URINE BLOOD NEGATIVE (NEGATIVE); URINE COLOR STRAW; URINE GLUCOSE (UA) NEGATIVE (NEGATIVE); URINE KETONE NEGATIVE (NEGATIVE); URINE LEUK ESTERASE NEGATIVE (NEGATIVE); URINE NITRITE NEGATIVE (NEGATIVE); URINE PROTEIN NEGATIVE (NEGATIVE); URINE UROBILINOGEN NEGATIVE mg/dL (0.2-1.0)
[2017-05-15] MEDS: diazePAM 5 MG TABLET PO PRN (23:36)
[2017-05-16] MEDS: diazePAM 5 MG TABLET PO PRN (05:41)
[2017-05-16] MEDS ORDERED: CYCLOBENZAPRINE HCL 10 MG TABLET (FP) PO PRN (08:58)
--- NOTE | 2017-05-16 09:07 | PN ---
BHS COWS - Scale Resting Pulse: 0= [place] 80 or Below Sweatin= Chills/Flushing Restless Observation: 3= Extraneous Movement Pupil Size: 1= Pupils >than Normal Bone or Joint Aches: 2= Severe Diffuse Aches Runny Nose/ Eye Tearin= Runny Nose/Eyes GI Upset > 30mins: 3= Vomiting/Diarrhea Tremor Observation of Outstretched Hands: 2= Slight Tremor Visible Yawning Observation: 1= 1-2x During Session Anxiety or Irritability: 2=Irritable/Anxious Goose Flesh Skin: 0=Smooth Skin COWS Score: 17 BHS Progress Note (SOAP) Subjective: alert,irritable,anxious,pain in the body and back,tremor,interrupted sleep, Objective: 05/16/17 09:05 Vital Signs Temperature 97.9 F 05/16/17 06:00 Pulse Rate 67 05/16/17 06:00 Respiratory Rate 18 05/16/17 06:00 Blood Pressure 96/55 05/16/17 06:00 O2 Sat by Pulse Oximetry (%) ekg nsr,normal ecg Laboratory Last Values Urine Color Straw 05/15/17 23:05 Urine Appearance Clear 05/15/17 23:05 Urine pH 7.0 (5.0-8.0) D 05/15/17 23:05 Ur Specific [place] 1.010 (1.001-1.035) 05/15/17 23:05 Urine Protein Negative (NEGATIVE) 05/15/17 23:05 Urine Glucose (UA) Negative (NEGATIVE) 05/15/17 23:05 Urine Ketones Negative (NEGATIVE) 05/15/17 23:05 Urine Blood Negative (NEGATIVE) 05/15/17 23:05 Urine Nitrite Negative (NEGATIVE) 05/15/17 23:05 Urine Bilirubin Negative (NEGATIVE) 05/15/17 23:05 Urine Urobilinogen Negative mg/dL (0.2-1.0) 05/15/17 23:05 Ur Leukocyte Esterase Negative (NEGATIVE) 05/15/17 23:05 labs pending Assessment: 05/16/17 09:06 withdrawal symptom Plan: continue detox
[2017-05-16] MEDS ORDERED: cloNIDine HCL 0.1 MG TABLET PO SCH (10:00)
[2017-05-16] MEDS ORDERED: METHADONE HCL 10 MG TABLET (FOR DETOX USE ONLY) PO ONE (10:00)
[2017-05-16] MEDS ORDERED: PRENATAL VITAMINS W/ FOLIC ACID TABLET (FP) PO SCH (10:00)
[2017-05-16] MEDS ORDERED: NICOTINE 14 MG/24 HOURS TOPICAL PATCH TD SCH (10:00)
[2017-05-16 10:26] LABS: HEMATOCRIT 43.5 % (32.4-45.2); HEMOGLOBIN 14.2 GM/dL (10.7-15.3); MCH 28.9 pg (25.7-33.7); MCHC 32.7 g/dl (32.0-36.0); MEAN CELL VOLUME 88.5 fl (80-96); MEAN PLT VOLUME 9.7 fl (7.5-11.1); PLATELET COUNT 359 K/MM3 (134-434); RBC 4.91 M/mm3 (3.60-5.2); RDW 13.6 % (11.6-15.6); WHITE BLOOD COUNT 9.8 K/mm3 (4.0-10.0)
[2017-05-16 10:27] LABS: CHLORIDE 101 mmol/L (98-107); POTASSIUM 3.8 mmol/L (3.5-5.1); SODIUM 138 mmol/L (136-145)
[2017-05-16 10:35] LABS: ALBUMIN 4.3 g/dl (3.4-5.0); ALK PHOS 51 U/L (45-117); ANION GAP 7 (8-16); BILIRUBIN,TOTAL 0.3 mg/dL (0.2-1.0); BLOOD UREA NITROGEN 9 mg/dL (7-18); CALCIUM 9.8 mg/dL (8.5-10.1); CO2 30 mmol/L (21-32); CREATININE 0.6 mg/dL (0.55-1.02); GLUCOSE,RANDOM 51 mg/dL (74-106); SGOT/AST 12 U/L (15-37); SGPT/ALT 20 U/L (12-78); TOT PROT 7.8 g/dl (6.4-8.2)
--- NOTE | 2017-05-16 10:54 | PN ---
S Progress Note Note: PATIENT DID NOT WANT TO COMPLETE TREATMENT,SIGNED RELEASE AMA,SEEN BY COUNSELOR
--- NOTE | 2017-05-16 10:57 | DS ---
[facility] Detox Discharge Summary Admission Date: 05/15/17 Discharge Date: 05/16/17 - History Present History: Opioid Dependence Additional Comments: PATIENT DID NOT WANT TO COMPLETE TREATMENT,SIGNED RELEASE AMA,SEEN BY COUNSELOR Pertinent Past History: NICOTINE DEPENDENCE ANXIETY AND DEPRESSION - Physical Exam Results Vital Signs: Vital Signs Temperature 97.9 F 05/16/17 06:00 Pulse Rate 67 05/16/17 06:00 Respiratory Rate 18 05/16/17 06:00 Blood Pressure 96/55 05/16/17 06:00 O2 Sat by Pulse Oximetry (%) - Medication Discharge Medications: Ambulatory Orders NK [No Known Home Medication] 04/21/17 - Diagnosis (1) Opioid dependence with withdrawal Current Visit: Yes Status: Chronic (2) Nicotine dependence Current Visit: Yes Status: Chronic Qualifiers: Nicotine product type: cigarettes Substance use status: uncomplicated Qualified Code(s): F17.210 - Nicotine dependence, cigarettes, uncomplicated (3) Anxiety Current Visit: Yes Status: Chronic (4) Depression Current Visit: Yes Status: Chronic - AMA Did Patient Leave Against Medical Advice: Yes
[2017-05-16 11:00] VITALS: BP 125/72; PULSE 79; TEMP 98.1
--- NOTE | 2017-05-16 11:29 | PN ---
BHS Progress Note Note: Psychiatric Nurse Practitioner note: Wallpaper Inspector And Shipper informed by staff that patient left AMA. Therefore patient was not seen by Psychiatric Nurse Practitioner.
[2017-05-17] MEDS ORDERED: METHADONE HCL 5 MG TABLET (FOR DETOX USE ONLY) PO ONE (10:00)
--- NOTE | 2017-05-17 10:54 | EKG ---
Test Reason : Blood Pressure : / mmHG Vent. Rate : 082 BPM Atrial Rate : 082 BPM P-R Int : 160 ms QRS Dur : 076 ms QT Int : 392 ms P-R-T Axes : 061 026 025 degrees QTc Int : 457 ms NORMAL SINUS RHYTHM NORMAL ECG WHEN COMPARED WITH ECG OF 21-APR-2017 15:15, NO SIGNIFICANT CHANGE WAS FOUND Confirmed by ARNOLDO QUARLES MD ([id number]) on 05/17/2017 10:54:33 AM Referred By: Confirmed By:ARNOLDO QUARLES MD
[2017-05-18] MEDS ORDERED: METHADONE HCL 5 MG TABLET (FOR DETOX USE ONLY) PO ONE (10:00)
[2017-05-19] MEDS ORDERED: METHADONE HCL 10 MG TABLET (FOR DETOX USE ONLY) PO ONE (10:00)
[2017-05-20] MEDS ORDERED: METHADONE HCL 5 MG TABLET (FOR DETOX USE ONLY) PO ONE (06:00)
== END 2017-05-16 10:07 | disposition left against medical advice (07) | DRG 861 ==
LOC: YASAS 18:11 → Y6N 21:26
PROVIDERS: ADMIT Internal Medicine; ATTEND Internal Medicine
PROC: HZ2ZZZZ Detoxification Services for Substance Abuse Treatment (ICD-10-PCS; principal; 2017-05-15)
DX: F17.210 Nicotine dependence, cigarettes, uncomplicated (principal); F41.9 Anxiety disorder, unspecified; F32.9 Major depressive disorder, single episode, unspecified; Z91.013 Allergy to seafood; Z91.040 Latex allergy status
CPT/HCPCS: 36415; 80053; 81003; 85027; 86593; 93005; 93010

== ENCOUNTER 2017-10-18 12:42 | Inpatient (IN) | payer OTHER ==
[2017-10-18 16:31] VITALS: BMI 30.2
--- NOTE | 2017-10-18 17:18 | HP ---
Admission [facility] Chief Complaint: opioid rehabilitation Allergies/Adverse Reactions: Allergies Allergy/AdvReac Type Severity Reaction Status Date / Time Fish Containing Products Allergy Severe Hives Verified 10/18/17 16:47 No Known Drug Allergies Allergy Verified 10/18/17 16:47 Latex, Natural Rubber AdvReac Verified 10/18/17 16:47 History of Present Illness: 22 yo female with hx of opioid and nicotine dependence is here is here [facility]. Last detox at [facility] and was discharged yesterday. PMHX: anxiety. Denies suicidal / homicidal ideation, denies hx of suicide attempt. Longets period of sobriety 5.5 months. Exam Limitations: No Limitations - Ebola screening Have you traveled outside of the country in the last 21 days: No (N) Have you had contact with anyone from an Ebola affected area: No Have you been sick,other than usual withdrawal symptoms: No Do you have a fever: No - Review of Systems Constitutional: Changes in sleep EENT: reports: No Symptoms Reported Respiratory: reports: No Symptoms reported Cardiac: reports: No Symptoms Reported GI: reports: Nausea, Poor Appetite, Poor Fluid Intake : reports: No Symptoms Reported Musculoskeletal: reports: Joint Pain (left le) Integumentary: reports: No Symptoms Reported Neuro: reports: Headache Endocrine: reports: Increased Thirst Hematology: reports: No Symptoms Reported Psychiatric: reports: Orientated x3, Anxious Other Systems: Reviewed and Negative Patient History - Patient Medical History Hx Anemia: Yes Hx Asthma: No Hx Chronic Obstructive Pulmonary Disease (COPD): No Hx Cancer: No Hx Cardiac Disorders: No Hx Congestive Heart Failure: No Hx Hypertension: No Hx Hypercholesterolemia: No Hx Pacemaker: No HX Cerebrovascular Accident: No Hx Seizures: No Hx Dementia: No Hx Diabetes: No Hx Gastrointestinal Disorders: No Hx Liver Disease: No Hx Genitourinary Disorders: No Hx Sexually Transmitted Disorders: No Hx Renal Disease (ESRD): No Hx Thyroid Disease: No Hx Human Immunodeficiency Virus (HIV): No Hx Hepatitis C: No Hx Depression: Yes (depressed for a while since using drugs) Hx Suicide Attempt: No (Denies suicidal ideation at this time) Hx Bipolar Disorder: No Hx Schizophrenia: No - Patient Surgical History Past Surgical History: Yes Hx Neurologic Surgery: No Hx Cataract Extraction: No Hx Cardiac Surgery: No Hx Lung Surgery: No Hx Breast Surgery: No Hx Breast Biopsy: No Hx Abdominal Surgery: No Hx Appendectomy: No Hx Cholecystectomy: No Hx Genitourinary Surgery: Yes (left kidney stent placement 08/2014 for kidney stones, removed in 1-2 wks) Hx Section: No Hx Orthopedic Surgery: No Hx Hysterectomy: No Anesthesia Reaction: No - PPD History Documented Results: Negative w/proof Date: 04/23/17 PPD to be Administered?: Yes - Reproductive History Patient is a Female of Child Bearing Age (11 -55 yrs old): Yes Last Menstrual Period: 09/15/17 Patient : No - Smoking Cessation Smoking history: Current every day smoker Have you smoked in the past 12 months: Yes Aproximately how many cigarettes per day: 20 Hx Chewing Tobacco Use: No Initiated information on smoking cessation: Yes 'Breaking Loose' booklet given: 10/18/17 - Substance & Tx. History Hx Alcohol Use: Yes Hx Substance Use: Yes Substance Use Type: Heroin Hx Substance Use Treatment: Yes (ast detox at [facility] and was discharged yesterday) - Substances Abused Heroin Route: Inhalation Frequency: Daily Amount used: 2-5 bags Age of first use: 19 Date of Last Use: 10/18/17 Family Disease History - Family Disease History Family Disease History: [place]: Grandparent (maternal grandfather from lymphoma; maternal grandmother survivor of breast cancer), Father (lymphoma), Mother (breast cancer x 2 (survivor)) Admission Physical Exam S - Vital Signs Vital Signs: Vital Signs - 24 hr 10/18/17 16:29 Temperature 99 F Pulse Rate 118 H Respiratory 18 Rate Blood Pressure 139/90 - Physical General Appearance: Yes: Nourished, Appropriately Dressed, Anxious HEENTM: Yes: Hearing grossly Normal, Normal ENT Inspection, Normocephalic, Normal Voice, PAUL, Pharynx Normal, Tm's normal Respiratory: Yes: Chest Non-Tender, Lungs Clear, Normal Breath Sounds, No Respiratory Distress, No Accessory Muscle Use Neck: Yes: No masses,lesions,Nodules, Trachea in good position Breast: Yes: Breast Exam Deferred Cardiology: Yes: Regular Rhythm, Regular Rate Abdominal: Yes: Normal Bowel Sounds, Non Tender, Flat, Soft Genitourinary: Yes: Within Normal Limits Back: Yes: Normal Inspection Musculoskeletal: Yes: full range of Motion, Gait Steady, Pelvis Stable Extremities: Yes: Normal Capillary Refill, Normal Inspection, Normal Range of Motion, Non-Tender Neurological: Yes: sizing machine operator II-XII NML intact, Fully Oriented, Alert, Motor Strength 5/5, Depressed Affect Integumentary: Yes: Normal Color, Warm, Moist Lymphatic: Yes: Within Normal Limits - Diagnostic (1) Anxiety Current Visit: Yes Status: Acute (2) Nicotine dependence Current Visit: Yes Status: Chronic Qualifiers: Nicotine product type: cigarettes Substance use status: uncomplicated Qualified Code(s): F17.210 - Nicotine dependence, cigarettes, uncomplicated (3) Opioid dependence, uncomplicated Current Visit: Yes Status: Acute BHS Breath Alcohol Content Breath Alcohol Content: 0 Urine Pregancy Test - Result Urine Test Results: Negative- NO Line Present Urine Drug Screen - Results Drug Screen Negative: No Urine Drug Screen Results: OPI-Opiates Inpatient Rehab Admission - Initial Determination Are CD services needed?: Yes Free of communicable disease: Yes Not in need of hospitalization: Yes - Rehab Admission Criteria Previous failed treatment: Yes Poor recovery environment: Yes Comorbidities: Yes Lacks judgement: Yes Patient is meeting Inpatient Rehab admission criteria:: Yes
[2017-10-18] MEDS ORDERED: LOPERAMIDE HCL 2 MG CAPSULE PO PRN (17:21)
[2017-10-18] MEDS ORDERED: MAG HYDROX/AL HYDROX/SIMETH 30 ML UNIT-DOSE CUP PO PRN (17:21)
[2017-10-18] MEDS ORDERED: IBUPROFEN 400 MG TABLET (FP) PO PRN (17:21)
[2017-10-18] MEDS ORDERED: MAGNESIUM CITRATE 300 ML BOTTLE PO PRN (17:21)
[2017-10-18] MEDS ORDERED: guaiFENesin/D-METHORPHAN HB 10 ML UNIT-DOSE CUPS PO PRN (17:21)
[2017-10-18] MEDS ORDERED: MAGNESIUM HYDROX 2400MG/30ML ORAL SUSPENSION 30 ML CUP PO PRN (17:21)
[2017-10-18] MEDS ORDERED: MENTHOL/PHENOL 1 EACH UD MM PRN (17:21)
[2017-10-18] MEDS ORDERED: P-EPHED 60MG/TRIPROLIDI 2.5MG TABLET PO PRN (17:21)
[2017-10-18] MEDS ORDERED: ACETAMINOPHEN 325 MG TABLET (FP) PO PRN (17:21)
[2017-10-18] MEDS ORDERED: ONDANSETRON *ODT* 4 MG TABLET SL PRN (17:21)
[2017-10-18] MEDS ORDERED: cloNIDine HCL 0.1 MG TABLET PO ONE (19:00)
--- NOTE | 2017-10-18 20:29 | PN ---
S Progress Note Note: Psychiatry Attending's stationary equipment mechanic note : Informed of arrival of patient on . Asked for orders for buspirone. No urgency.Medication to be ordered in AM. After evaluation by unit psychiatrist.
[2017-10-18] MEDS: THIAMINE HCL 100 MG TABLET (FP) PO SCH (21:32)
[2017-10-18] MEDS: MELATONIN 5 MG TABLETS PO PRN (21:32)
[2017-10-18] MEDS: hydrOXYzine PAMOATE 50 MG CAPSULE (FP) PO PRN (21:32)
[2017-10-18] MEDS: NICOTINE POLACRILEX 2 MG GUM BC PRN (21:33)
[2017-10-19] MEDS: NICOTINE 21 MG/24 HOURS TOPICAL PATCH TD SCH (09:13)
[2017-10-19] MEDS: PRENATAL VITAMINS W/ FOLIC ACID TABLET (FP) PO SCH (09:13)
[2017-10-19] MEDS: NICOTINE POLACRILEX 2 MG GUM BC PRN (09:15)
[2017-10-19 10:15] LABS: HEMATOCRIT 39.3 % (32.4-45.2); HEMOGLOBIN 13.1 GM/dL (10.7-15.3); MCH 29.2 pg (25.7-33.7); MCHC 33.4 g/dl (32.0-36.0); MEAN CELL VOLUME 87.3 fl (80-96); MEAN PLT VOLUME 11.5 fl (7.5-11.1); PLATELET COUNT 286 K/MM3 (134-434); RDW 13.5 % (11.6-15.6); WHITE BLOOD COUNT 7.2 K/mm3 (4.0-10.0)
[2017-10-19 10:29] LABS: CHLORIDE 103 mmol/L (98-107); SODIUM 140 mmol/L (136-145)
[2017-10-19 10:54] LABS: ALBUMIN 3.1 g/dl (3.4-5.0); ALK PHOS 42 U/L (45-117); ANION GAP 9 (8-16); BILIRUBIN,TOTAL 0.2 mg/dL (0.2-1.0); BLOOD UREA NITROGEN 8 mg/dL (7-18); CALCIUM 8.7 mg/dL (8.5-10.1); CO2 28 mmol/L (21-32); CREATININE 0.5 mg/dL (0.55-1.02); GLUCOSE,RANDOM 85 mg/dL (74-106); SGOT/AST 12 U/L (15-37); SGPT/ALT 14 U/L (12-78); TOT PROT 6.4 g/dl (6.4-8.2)
--- NOTE | 2017-10-19 12:11 | EKG ---
Test Reason : Blood Pressure : / mmHG Vent. Rate : 077 BPM Atrial Rate : 077 BPM P-R Int : 138 ms QRS Dur : 072 ms QT Int : 376 ms P-R-T Axes : 051 033 036 degrees QTc Int : 425 ms SINUS RHYTHM WITH OCCASIONAL PREMATURE VENTRICULAR COMPLEXES OTHERWISE NORMAL ECG WHEN COMPARED WITH ECG OF 15-MAY-2017 23:47, PREMATURE VENTRICULAR COMPLEXES ARE NOW PRESENT Confirmed by CHINO KOO, ANTONIO ([id number]) on 10/19/2017 12:11:06 PM Referred By: Confirmed By:ANTONIO MAGANA MD
--- NOTE | 2017-10-19 13:16 | HP ---
Psychiatrist Admission - Data Date of interview: 10/19/17 Admission source: [facility] in [facility] Identifying data: This is the first Rehabilitation Inpatient Rehabilitation admission for this 22 years old single female, living and supported by her parents Medical History: Significant for history of treatment for anemia and a recent history of renal stent placement (2015) for kidney stones (no longer in place). Smoke cigarettes 1 ppd Psychiatric History: Reports her first psychiatric contact was early June 2017 when she [facility]. She was diagnosed with Anxiety and prescribed Buspar. She is now getting Buspar 10 mg po TID prescribed by her psychiatrist at [facility] where she is in a program. Denies history of hospitalization or suicidal attempt. At present , reports feeling well but sleeping poorly Physical/Sexual Abuse/Trauma History: Denies history of emotional, physical or sexual abuse as well as DV relationship Additional Comment: No legal history Vital Signs: Vital Signs - 24 hr 10/18/17 10/19/17 10/19/17 16:29 00:30 03:30 Temperature 99 F Pulse Rate 118 H Respiratory 18 18 18 Rate Blood Pressure 139/90 10/19/17 06:57 Temperature 98.0 F Pulse Rate 77 Respiratory 18 Rate Blood Pressure 99/63 Allergies/Adverse Reactions: Allergies Allergy/AdvReac Type Severity Reaction Status Date / Time Fish Containing Products Allergy Severe Hives Verified 10/18/17 16:47 No Known Drug Allergies Allergy Verified 10/18/17 16:47 Latex, Natural Rubber AdvReac Verified 10/18/17 16:47 Date of last physical exam: 10/18/17 Concur with the findings of this exam: Yes - Substance Abuse/Tx History Hx Alcohol Use: No Hx Substance Use: Yes Substance Use Type: Heroin (Started using heroin at age 19, cosumes 2-5 bags daily. Last used on 10/18/17) Hx Substance Use Treatment: Yes (3 previous inpt detox admissions @ [facility] and one inpt rehab([facility])) Mental Status Exam - Mental Status Exam Alert and Oriented to: Time, Place, Person Cognitive Function: Fair Patient Appearance: Well Groomed Mood: Hopeful, Euthymic Affect: Appropriate Patient Behavior: Cooperative Speech Pattern: Clear Voice Loudness: Normal Thought Process: Intact Thought Disorder: Not Present Hallucinations: Denies Suicidal Ideation: Denies Homicidal Ideation: Denies Insight/Judgement: Fair Sleep: Poorly Appetite: Good Muscle strength/Tone: Normal Gait/Station: Normal Psychiatric Findings - Problem List ([place] 1, 2,3) (1) Opioid dependence Current Visit: Yes Status: Acute (2) Nicotine dependence Current Visit: Yes Status: Chronic Qualifiers: Nicotine product type: cigarettes Substance use status: uncomplicated Qualified Code(s): F17.210 - Nicotine dependence, cigarettes, uncomplicated (3) Anxiety disorder Current Visit: Yes Status: Chronic (4) Substance-induced anxiety disorder Current Visit: Yes Status: Ruled-out (5) Anemia Current Visit: Yes Status: Resolved - Initial Treatment Plan Initial Treatment Plan: 1) Continue Buspar 10 mg po TID. 2) Start Melatonin 5 mg po HS prn for insomnia. 3) Monitor progress
[2017-10-19] MEDS: busPIRone HCL 10 MG TABLET (FP) PO SCH ×2 (14:14→21:32)
[2017-10-19] MEDS ORDERED: TIZANIDINE HCL 2 MG TABLET PO PRN (14:22)
[2017-10-19 16:31] LABS: URINE APPEARANCE SLCLOUDY; URINE BILIRUBIN NEGATIVE (<2.0 mg/dL); URINE COLOR YELLOW; URINE GLUCOSE (UA) NEGATIVE (NEGATIVE); URINE KETONE NEGATIVE (NEGATIVE); URINE LEUK ESTERASE TRACE (NEGATIVE); URINE NITRITE NEGATIVE (NEGATIVE); URINE PROTEIN NEGATIVE (NEGATIVE); URINE UROBILINOGEN NEGATIVE mg/dL (0.2-1.0)
[2017-10-19 16:40] LABS: CALCIUM OXALATE CRYSTALS FEW /hpf (NONE SEEN); EPI CELLS RARE /HPF (FEW); URINE MUCUS RARE
[2017-10-19] MEDS: hydrOXYzine PAMOATE 50 MG CAPSULE (FP) PO PRN (21:31)
[2017-10-19] MEDS: THIAMINE HCL 100 MG TABLET (FP) PO SCH (21:31)
[2017-10-19] MEDS: MELATONIN 5 MG TABLETS PO PRN (21:32)
[2017-10-20] MEDS: busPIRone HCL 10 MG TABLET (FP) PO SCH ×3 (06:34→21:03)
[2017-10-20] MEDS: NICOTINE 21 MG/24 HOURS TOPICAL PATCH TD SCH (10:09)
[2017-10-20] MEDS: PRENATAL VITAMINS W/ FOLIC ACID TABLET (FP) PO SCH (10:10)
[2017-10-20] MEDS: NICOTINE POLACRILEX 2 MG GUM BC PRN (14:17)
[2017-10-20] MEDS ORDERED: cloNIDine HCL 0.1 MG TABLET PO ONE (15:05)
--- NOTE | 2017-10-20 15:10 | PN ---
[facility] Progress Note Note: Patient presents with c/o hot and cold flashes, headache and anxiety. Denies chest pain, dizziness and sob. Laboratory Tests 10/19/17 10/19/17 10/19/17 07:00 07:00 07:00 WBC 7.2 RBC 4.50 Hgb 13.1 Hct 39.3 MCV 87.3 MCH 29.2 MCHC 33.4 RDW 13.5 Plt Count 286 D MPV 11.5 H D Sodium 140 Potassium 4.0 Chloride 103 Carbon Dioxide 28 Anion Gap 9 BUN 8 Creatinine 0.5 L Creat Clearance w eGFR > 60 Random Glucose 85 Calcium 8.7 Total Bilirubin 0.2 AST 12 L ALT 14 Alkaline Phosphatase 42 L Total Protein 6.4 Albumin 3.1 L Urine Color Urine Appearance Urine pH Ur Specific [place] Urine Protein Urine Glucose (UA) Urine Ketones Urine Blood Urine Nitrite Urine Bilirubin Urine Urobilinogen Ur Leukocyte Esterase Urine WBC (Auto) Urine RBC (Auto) Ur Epithelial Cells Calcium Oxalate Crystal Urine Mucus RPR Titer Nonreactive 10/19/17 10:00 WBC RBC Hgb Hct MCV MCH MCHC RDW Plt Count MPV Sodium Potassium Chloride Carbon Dioxide Anion Gap BUN Creatinine Creat Clearance w eGFR Random Glucose Calcium Total Bilirubin AST ALT Alkaline Phosphatase Total Protein Albumin Urine Color Yellow Urine Appearance Slcloudy Urine pH 6.0 Ur Specific [place] 1.019 Urine Protein Negative Urine Glucose (UA) Negative Urine Ketones Negative Urine Blood Negative Urine Nitrite Negative Urine Bilirubin Negative Urine Urobilinogen Negative Ur Leukocyte Esterase Trace Urine WBC (Auto) 6 Urine RBC (Auto) 3 Ur Epithelial Cells Rare Calcium Oxalate Crystal Few Urine Mucus Rare RPR Titer Vital Signs Temperature 97.9 F 10/20/17 06:48 Pulse Rate 73 10/20/17 06:48 Respiratory Rate 18 10/20/17 06:48 Blood Pressure 113/75 10/20/17 06:48 O2 Sat by Pulse Oximetry (%) obj: general: alert and oriented x 3. anxious and pacing in unit. skin: afebrile. moist and intact ext: no edema, full rom a/p: withdrawal syndrome will order clonidine 0.1mg po stat maintain oral fluids continue to monitor clinically
[2017-10-20] MEDS: MELATONIN 5 MG TABLETS PO PRN (21:03)
[2017-10-20] MEDS: THIAMINE HCL 100 MG TABLET (FP) PO SCH (21:03)
[2017-10-20] MEDS: hydrOXYzine PAMOATE 50 MG CAPSULE (FP) PO PRN (21:03)
[2017-10-21] MEDS: busPIRone HCL 10 MG TABLET (FP) PO SCH ×2 (06:41→13:00)
[2017-10-21 07:03] VITALS: BP 93/61; PULSE 83; TEMP 98.1
[2017-10-21] MEDS: NICOTINE 21 MG/24 HOURS TOPICAL PATCH TD SCH (10:05)
[2017-10-21] MEDS: PRENATAL VITAMINS W/ FOLIC ACID TABLET (FP) PO SCH (10:05)
--- NOTE | 2017-10-21 13:40 | PN ---
S Progress Note Note: Psychiatruy Attending's note : Informed of patient's decision to leave [facility]. Asked to wait for the psychiatrist to discuss her motivation. Patient, as per nurse, declined and left the unit. See staff's notes for details.
== END 2017-10-21 13:05 | disposition left against medical advice (07) | DRG 770 ==
LOC: YASAS 12:42 → Y3E 18:38
PROVIDERS: ADMIT Psychiatry & Neurology Psychiatry; ATTEND Psychiatry & Neurology Psychiatry
PROC: HZ42ZZZ Group Counseling for Substance Abuse Treatment, Cognitive-Behavioral (ICD-10-PCS; principal; 2017-10-18)
DX: F11.20 Opioid dependence, uncomplicated (principal); F17.210 Nicotine dependence, cigarettes, uncomplicated; F19.280 Other psychoactive substance dependence with psychoactive substance-induced anxiety disorder; F41.9 Anxiety disorder, unspecified; D64.9 Anemia, unspecified
CPT/HCPCS: 36415; 80053; 81003; 81015; 85027; 86593; 93005; 93010; J0735

== ENCOUNTER 2017-12-27 15:53 | Inpatient (IN) | payer OTHER ==
[2017-12-27 17:21] VITALS: BMI 27.3
--- NOTE | 2017-12-27 21:31 | HP ---
COWS - Scale Resting Pulse: 2= [place] 101-120 Sweatin=Flushed/Facial Moisture Restless Observation: 0= Sits Still Pupil Size: 0= Normal to Room Light Bone or Joint Aches: 4=Acute Joint/Muscle Pain Runny Nose/ Eye Tearin= Nasal Congestion GI Upset > 30mins: 1= Stomach Cramp Tremor Observation: 0= None Yawning Observation: 0= None Anxiety or Irritability: 4=Extreme Anxiety Goose Flesh Skin: 0=Smooth Skin COWS Score: 14 CIWA Score - CIWA Score Nausea/Vomitin-Mild Nausea/No Vomiting Muscle Tremors: 4-Moderate,w/Arms Extend Anxiety: 4-Mod. Anxious/Guarded Agitation: 2 Paroxysmal Sweats: 1-Minimal Palms Moist Orientation: 0-Oriented Tacttile Disturbances: 0-None Auditory Disturbances: 0-None Visual Disturbances: 0-None Headache: 3-Moderate CIWA-Ar Total Score: 15 Admission ROS S - HPI Chief Complaint: Alcohol and heroine withdrawal symptoms Allergies/Adverse Reactions: Allergies Allergy/AdvReac Type Severity Reaction Status Date / Time Fish Containing Products Allergy Severe Hives Verified 12/27/17 20:49 No Known Drug Allergies Allergy Verified 12/27/17 20:49 Latex, Natural Rubber AdvReac Verified 12/27/17 20:49 History of Present Illness: 22 years old female with 3years old alcohol and heroine withdrawal symptoms is seeking admission to detox. Patient has been in previous detox and reports insignificant period of sobriety. She has medical history of anxiety and depression. Patient denies suicide attempt and suicidal ideation at this time. Exam Limitations: No Limitations - Ebola screening Have you traveled outside of the country in the last 21 days: No (N) Have you had contact with anyone from an Ebola affected area: No Have you been sick,other than usual withdrawal symptoms: No Do you have a fever: No - Review of Systems Constitutional: Chills, Loss of Appetite, Malaise, Changes in sleep EENT: reports: No Symptoms Reported Respiratory: reports: No Symptoms reported Cardiac: reports: No Symptoms Reported GI: reports: Nausea, Poor Appetite, Poor Fluid Intake, Abdominal cramping : reports: No Symptoms Reported Musculoskeletal: reports: Back Pain, Muscle Pain, Muscle Weakness Integumentary: reports: Dryness Neuro: reports: Headache, Tingling (hands), Tremors Endocrine: reports: No Symptoms Reported Hematology: reports: No Symptoms Reported Psychiatric: reports: Anxious, Depressed Other Systems: Reviewed and Negative Patient History - Patient Medical History Hx Anemia: Yes Hx Asthma: No Hx Chronic Obstructive Pulmonary Disease (COPD): No Hx Cancer: No Hx Cardiac Disorders: No Hx Congestive Heart Failure: No Hx Hypertension: No Hx Hypercholesterolemia: No Hx Pacemaker: No HX Cerebrovascular Accident: No Hx Seizures: No Hx Dementia: No Hx Diabetes: No Hx Gastrointestinal Disorders: No Hx Liver Disease: No Hx Genitourinary Disorders: No Hx Sexually Transmitted Disorders: No Hx Renal Disease (ESRD): No Hx Thyroid Disease: No Hx Human Immunodeficiency Virus (HIV): No Hx Hepatitis C: No Hx Depression: Yes (Not on medication) Hx Suicide Attempt: No Hx Bipolar Disorder: No Hx Schizophrenia: No Other Medical History: Anxiety -Buspar - Patient Surgical History Past Surgical History: Yes Hx Neurologic Surgery: No Hx Cataract Extraction: No Hx Cardiac Surgery: No Hx Lung Surgery: No Hx Breast Surgery: No Hx Breast Biopsy: No Hx Abdominal Surgery: No Hx Appendectomy: No Hx Cholecystectomy: No Hx Genitourinary Surgery: Yes (left kidney stent placement 08/2014 for kidney stones, removed in 1-2 wks) Hx Section: No Hx Orthopedic Surgery: No Hx Hysterectomy: No Anesthesia Reaction: No - PPD History Previous Implant?: Yes Documented Results: Negative w/proof Implanted On Prior [facility] Admission?: Yes Date: 04/23/17 Results: negative - Reproductive History Last Menstrual Period: 09/15/17 - Smoking Cessation Smoking history: Current every day smoker Have you smoked in the past 12 months: Yes Aproximately how many cigarettes per day: 20 Hx Chewing Tobacco Use: No Initiated information on smoking cessation: Yes 'Breaking Loose' booklet given: 12/27/17 - Substances Abused Heroin Route: Injection Frequency: Daily Amount used: 10-15 bags Age of first use: 19 Date of Last Use: 12/27/17 Alcohol Route: Oral Frequency: 3-6 times per week Amount used: 4 CANS OF BEER (40 OUNCES ) Age of first use: 19 Date of Last Use: 12/25/17 Family Disease History - Family Disease History Family Disease History: [place]: Grandparent (maternal grandfather from lymphoma; maternal grandmother survivor of breast cancer), Father (lymphoma), Mother (breast cancer x 2 (survivor)) Admission Physical Exam S - Vital Signs Vital Signs: Vital Signs - 24 hr 12/27/17 17:19 Temperature 98.8 F Pulse Rate 108 H Respiratory 18 Rate Blood Pressure 119/67 - Physical General Appearance: Yes: Moderate Distress HEENTM: Yes: EOMI, Normal ENT Inspection, Normal Voice, PAUL Respiratory: Yes: Lungs Clear, Normal Breath Sounds, No Respiratory Distress Neck: Yes: Supple Breast: Yes: Breast Exam Deferred Cardiology: Yes: Tachycardia Abdominal: Yes: Normal Bowel Sounds, Soft Genitourinary: Yes: Within Normal Limits Back: Yes: Normal Inspection Musculoskeletal: Yes: Back pain, Muscle Pain, Muscle weakness 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, Alert, Normal Mood/Affect Integumentary: Yes: Warm Lymphatic: Yes: Within Normal Limits - Diagnostic (1) Anxiety Current Visit: Yes Status: Chronic (2) Opioid dependence, uncomplicated Current Visit: Yes Status: Chronic (3) Alcohol dependence with uncomplicated withdrawal Current Visit: Yes Status: Chronic (4) Anxiety disorder Current Visit: Yes Status: Chronic (5) Cannabis dependence Current Visit: Yes Status: Chronic (6) Depression Current Visit: Yes Status: Chronic Qualifiers: Depression Type: unspecified Qualified Code(s): F32.9 - Major depressive disorder, single episode, unspecified (7) Nicotine dependence Current Visit: Yes Status: Chronic Qualifiers: Nicotine product type: cigarettes Substance use status: uncomplicated Qualified Code(s): F17.210 - Nicotine dependence, cigarettes, uncomplicated (8) Anemia Current Visit: Yes Status: Chronic S Breath Alcohol Content Breath Alcohol Content: 0 Urine Pregancy Test - Result Urine Test Results: Negative- NO Line Present Urine Drug Screen - Results Drug Screen Negative: No Urine Drug Screen Results: THC-Marijuana, OPI-Opiates, OXY-Oxycodone, FEN- Fentanyl, BUP-Suboxone
[2017-12-27] MEDS ORDERED: guaiFENesin/D-METHORPHAN HB 10 ML UNIT-DOSE CUPS PO PRN (21:38)
[2017-12-27] MEDS ORDERED: IBUPROFEN 400 MG TABLET (FP) PO PRN (21:38)
[2017-12-27] MEDS ORDERED: chlordiazePOXIDE HCL 25 MG CAPSULE PO PRN (21:38)
[2017-12-27] MEDS ORDERED: NICOTINE POLACRILEX 2 MG GUM BUC PRN (21:38)
[2017-12-27] MEDS ORDERED: P-EPHED 60MG/TRIPROLIDI 2.5MG TABLET PO PRN (21:38)
[2017-12-27] MEDS ORDERED: MAGNESIUM HYDROX 2400MG/30ML ORAL SUSPENSION 30 ML CUP PO PRN (21:38)
[2017-12-27] MEDS ORDERED: METHADONE HCL 10 MG TABLET (FOR DETOX USE ONLY) PO ONE ×2 (21:38→23:00)
[2017-12-27] MEDS ORDERED: ACETAMINOPHEN 325 MG TABLET (FP) PO PRN (21:38)
[2017-12-27] MEDS ORDERED: MENTHOL/PHENOL 1 EACH UD MM PRN (21:38)
[2017-12-27] MEDS ORDERED: MAGNESIUM CITRATE 300 ML BOTTLE PO PRN (21:38)
[2017-12-27] MEDS ORDERED: MAG HYDROX/AL HYDROX/SIMETH 30 ML UNIT-DOSE CUP PO PRN (21:38)
[2017-12-27] MEDS ORDERED: LOPERAMIDE HCL 2 MG CAPSULE PO PRN (21:38)
[2017-12-27] MEDS ORDERED: chlordiazePOXIDE HCL 25 MG CAPSULE PO SCH (23:00)
[2017-12-27 23:27] LABS: URINE APPEARANCE TURBID; URINE BILIRUBIN NEGATIVE (<2.0 mg/dL); URINE COLOR YELLOW; URINE GLUCOSE (UA) NEGATIVE (NEGATIVE); URINE KETONE TRACE (NEGATIVE); URINE LEUK ESTERASE NEGATIVE (NEGATIVE); URINE NITRITE NEGATIVE (NEGATIVE); URINE PROTEIN NEGATIVE (NEGATIVE); URINE UROBILINOGEN NEGATIVE mg/dL (0.2-1.0)
[2017-12-27 23:31] LABS: EPI CELLS RARE /HPF (FEW); URINE BACTERIA RARE /hpf (NONE SEEN); URINE MUCUS RARE
[2017-12-28] MEDS ORDERED: chlordiazePOXIDE HCL 25 MG CAPSULE PO PRN ×2 (00:43→01:09)
[2017-12-28] MEDS ORDERED: METHADONE HCL 10 MG TABLET (FOR DETOX USE ONLY) PO ONE ×7 (01:09→23:00)
[2017-12-28] MEDS: THIAMINE HCL 100 MG TABLET (FP) PO SCH ×2 (01:13→22:03)
[2017-12-28] MEDS ORDERED: diazePAM 5 MG TABLET PO PRN (01:24)
[2017-12-28] MEDS ORDERED: chlordiazePOXIDE HCL 25 MG CAPSULE PO ONE (01:33)
[2017-12-28] MEDS ORDERED: chlordiazePOXIDE HCL 25 MG CAPSULE PO SCH ×3 (05:00→23:00)
[2017-12-28] MEDS: chlordiazePOXIDE HCL 25 MG CAPSULE PO SCH ×4 (06:12→22:03)
[2017-12-28] MEDS ORDERED: METHADONE HCL 10 MG TABLET (FOR DETOX USE ONLY) PO SCH (10:00)
--- NOTE | 2017-12-28 10:00 | EKG ---
Test Reason : Blood Pressure : / mmHG Vent. Rate : 076 BPM Atrial Rate : 076 BPM P-R Int : 142 ms QRS Dur : 072 ms QT Int : 380 ms P-R-T Axes : 066 030 036 degrees QTc Int : 427 ms NORMAL SINUS RHYTHM WITH SINUS ARRHYTHMIA NORMAL ECG WHEN COMPARED WITH ECG OF 18-OCT-2017 19:48, PREMATURE VENTRICULAR COMPLEXES ARE NO LONGER PRESENT Confirmed by ANTONIO MAGANA MD ([id number]) on 12/28/2017 9:59:46 AM Referred By: Confirmed By:ANTONIO MAGANA MD
--- NOTE | 2017-12-28 10:17 | PN ---
S CIWA - CIWA Score Nausea/Vomitin-Mild Nausea/No Vomiting Muscle Tremors: 4-Moderate,w/Arms Extend Anxiety: 3 Agitation: 3 Paroxysmal Sweats: 1-Minimal Palms Moist Orientation: 0-Oriented Tacttile Disturbances: 1-Very Mild Itch/Numbness Auditory Disturbances: 0-None Visual Disturbances: 0-None Headache: 0-None Present CIWA-Ar Total Score: 13 [facility] COWS - Scale Resting Pulse: 0= [place] 80 or Below Sweatin= Chills/Flushing Restless Observation: 1= Difficult to Sit Still Pupil Size: 0= Normal to Room Light Bone or Joint Aches: 2= Severe Diffuse Aches Runny Nose/ Eye Tearin= Nasal Congestion GI Upset > 30mins: 2= Nausea/Diarrhea Tremor Observation of Outstretched Hands: 2= Slight Tremor Visible Yawning Observation: 2= >3x During Session Anxiety or Irritability: 2=Irritable/Anxious Goose Flesh Skin: 0=Smooth Skin COWS Score: 13 S Progress Note (SOAP) Subjective: sweat tremor restlessness anxiety trouble sleep at night Objective: 12/28/17 10:17 Vital Signs Temperature 97.7 F 12/28/17 09:50 Pulse Rate 85 12/28/17 09:50 Respiratory Rate 16 12/28/17 09:50 Blood Pressure 90/56 12/28/17 09:50 O2 Sat by Pulse Oximetry (%) Laboratory Last Values Urine Color Yellow 12/27/17 23:10 Urine Appearance Turbid 12/27/17 23:10 Urine pH 5.0 (5.0-8.0) 12/27/17 23:10 Ur Specific [place] 1.025 (1.001-1.035) 12/27/17 23:10 Urine Protein Negative (NEGATIVE) 12/27/17 23:10 Urine Glucose (UA) Negative (NEGATIVE) 12/27/17 23:10 Urine Ketones Trace (NEGATIVE) H 12/27/17 23:10 Urine Blood 2+ (NEGATIVE) H 12/27/17 23:10 Urine Nitrite Negative (NEGATIVE) 12/27/17 23:10 Urine Bilirubin Negative (<2.0 mg/dL) 12/27/17 23:10 Urine Urobilinogen Negative mg/dL (0.2-1.0) 12/27/17 23:10 Ur Leukocyte Esterase Negative (NEGATIVE) 12/27/17 23:10 Urine WBC (Auto) 12 /hpf (3-5) 12/27/17 23:10 Urine RBC (Auto) 2 /hpf (0-3) 12/27/17 23:10 Ur Epithelial Cells Rare /HPF (FEW) 12/27/17 23:10 Urine Bacteria Rare /hpf (NONE SEEN) 12/27/17 23:10 Urine Mucus Rare 12/27/17 23:10 lab noted Assessment: 12/28/17 10:17 withdrawal sx Plan: continue detox
[2017-12-28 10:21] LABS: HEMATOCRIT 36.7 % (32.4-45.2); HEMOGLOBIN 12.1 GM/dL (10.7-15.3); MCH 29.1 pg (25.7-33.7); MCHC 33.1 g/dl (32.0-36.0); MEAN CELL VOLUME 88.1 fl (80-96); MEAN PLT VOLUME 11.4 fl (7.5-11.1); PLATELET COUNT 284 K/MM3 (134-434); RBC 4.16 M/mm3 (3.60-5.2); RDW 14.6 % (11.6-15.6); WHITE BLOOD COUNT 6.5 K/mm3 (4.0-10.0)
[2017-12-28] MEDS: NICOTINE 14 MG/24 HOURS TOPICAL PATCH TD SCH (10:45)
[2017-12-28] MEDS: PRENATAL VITAMINS W/ FOLIC ACID TABLET (FP) PO SCH (10:46)
[2017-12-28 11:57] LABS: ALBUMIN 3.2 g/dl (3.4-5.0); ALK PHOS 42 U/L (45-117); ANION GAP 5 MMOL/L (8-16); BILIRUBIN,TOTAL 0.1 mg/dL (0.2-1); BLOOD UREA NITROGEN 12 mg/dL (7-18); CALCIUM 8.4 mg/dL (8.5-10.1); CHLORIDE 106 mmol/L (98-107); CO2 29 mmol/L (21-32); CREATININE 0.7 mg/dL (0.55-1.3); GLUCOSE,RANDOM 96 mg/dL (74-106); POTASSIUM 3.5 mmol/L (3.5-5.1); SGOT/AST 12 U/L (15-37); SGPT/ALT 13 U/L (13-61); SODIUM 140 mmol/L (136-145); TOT PROT 6.5 g/dl (6.4-8.2)
[2017-12-28] MEDS: chlordiazePOXIDE HCL 25 MG CAPSULE PO PRN (12:59)
--- NOTE | 2017-12-28 17:28 | CONSULT ---
[facility] Psychiatric Consult - Data Date of interview: 12/28/17 Admission source: [facility] Identifying data: Patient is a 22 year old single female, without children, unemployed, and currently resides with parents. This is one of multiple admissions for patient. Pt. admitted to for alcohol and opiate dependence. Substance Abuse History: Smoking Cessation. Smoking history: Current every day smoker. Have you smoked in the past 12 months: Yes. Aproximately how many cigarettes per day: 20. Hx Chewing Tobacco Use: No. Initiated information on smoking cessation: Yes. 'Breaking Loose' booklet given: 12/27/17. - Substances Abused. Heroin. Route: Injection. Frequency: Daily. Amount used: 10-15 bags. Age of first use: 19. Date of Last Use: 12/27/17. Alcohol. Route: Oral. Frequency: 3-6 times per week. Amount used: 4 CANS OF BEER (40 OUNCES ). Age of first use: 19. Date of Last Use: 12/25/17 Medical History: Anemia, left kidney stent placement 08/2014 for kidney stones Psychiatric History: Patient denies h/o psychiatric hospitalizations. All of patients psychiatric contact has been in detox/rehab facilities. She reports a h /o accepting buspar 20mg TID but currently reports medication noncompliance. Pt. denies h/o suicide attempt. Physical/Sexual Abuse/Trauma History: denies. Mental Status Exam - Mental Status Exam Alert and Oriented to: Time, Place, Person Cognitive Function: Good Patient Appearance: Well Groomed Mood: Euthymic Affect: Mood Congruent Patient Behavior: Appropriate, Cooperative Speech Pattern: Appropriate Voice Loudness: Normal Thought Process: Intact, Goal Oriented Thought Disorder: Not Present Hallucinations: Denies Suicidal Ideation: Denies Homicidal Ideation: Denies Insight/Judgement: Poor Sleep: Poorly Appetite: Fair Muscle strength/Tone: Normal Gait/Station: Normal Psychiatric Findings - Problem List (Blanch 1, 2,3) (1) Alcohol dependence with uncomplicated withdrawal Current Visit: Yes Status: Acute (2) Anxiety disorder Current Visit: No Status: Chronic (3) Cannabis dependence Current Visit: Yes Status: Chronic (4) Opioid dependence with withdrawal Current Visit: Yes Status: Acute (5) Nicotine dependence Current Visit: Yes Status: Chronic Qualifiers: Nicotine product type: cigarettes Substance use status: uncomplicated Qualified Code(s): F17.210 - Nicotine dependence, cigarettes, uncomplicated - Initial Treatment Plan Initial Treatment Plan: Psychoeducation provided. Detoxification in progress. Observation.
[2017-12-28] MEDS: MELATONIN 5 MG TABLETS PO PRN (22:05)
[2017-12-29] MEDS ORDERED: chlordiazePOXIDE HCL 25 MG CAPSULE PO SCH ×2 (05:00)
[2017-12-29] MEDS: chlordiazePOXIDE HCL 25 MG CAPSULE PO SCH ×4 (05:17→22:07)
[2017-12-29] MEDS ORDERED: METHADONE HCL 10 MG TABLET (FOR DETOX USE ONLY) PO ONE (10:00)
[2017-12-29] MEDS ORDERED: METHADONE HCL 5 MG TABLET (FOR DETOX USE ONLY) PO SCH ×3 (10:00)
[2017-12-29] MEDS: NICOTINE 14 MG/24 HOURS TOPICAL PATCH TD SCH (10:05)
[2017-12-29] MEDS: PRENATAL VITAMINS W/ FOLIC ACID TABLET (FP) PO SCH (10:07)
[2017-12-29] MEDS: chlordiazePOXIDE HCL 25 MG CAPSULE PO PRN (13:24)
--- NOTE | 2017-12-29 14:44 | PN ---
[facility] CIWA - CIWA Score Nausea/Vomitin-No Nausea/No Vomiting Muscle Tremors: None Anxiety: 1-Mildly Anxious Agitation: 1-Slight > Activity Paroxysmal Sweats: No Perspiration Orientation: 0-Oriented Tacttile Disturbances: 0-None Auditory Disturbances: 0-None Visual Disturbances: 0-None Headache: 0-None Present CIWA-Ar Total Score: 2 S COWS - Scale Resting Pulse: 0= [place] 80 or Below Sweatin= No chills or Flushing Restless Observation: 1= Difficult to Sit Still Pupil Size: 0= Normal to Room Light Bone or Joint Aches: 0= None Runny Nose/ Eye Tearin= None GI Upset > 30mins: 0= None Tremor Observation of Outstretched Hands: 0= None Yawning Observation: 0= None Anxiety or Irritability: 0= None Goose Flesh Skin: 0=Smooth Skin COWS Score: 1 [facility] Progress Note (SOAP) Subjective: patient anxious and pacing in hallway. Objective: 12/29/17 14:43 Vital Signs Temperature 98.2 F 12/29/17 12:50 Pulse Rate 98 H 12/29/17 12:50 Respiratory Rate 18 12/29/17 12:50 Blood Pressure 143/74 12/29/17 12:50 O2 Sat by Pulse Oximetry (%) Laboratory Tests 12/27/17 12/28/17 12/28/17 23:10 07:00 07:00 WBC 6.5 RBC 4.16 Hgb 12.1 Hct 36.7 MCV 88.1 MCH 29.1 MCHC 33.1 RDW 14.6 Plt Count 284 MPV 11.4 H Sodium 140 Potassium 3.5 Chloride 106 Carbon Dioxide 29 Anion Gap 5 L BUN 12 Creatinine 0.7 Creat Clearance w eGFR > 60 Random Glucose 96 Calcium 8.4 L Total Bilirubin 0.1 L AST 12 L ALT 13 Alkaline Phosphatase 42 L Total Protein 6.5 Albumin 3.2 L Urine Color Yellow Urine Appearance Turbid Urine pH 5.0 Ur Specific [place] 1.025 Urine Protein Negative Urine Glucose (UA) Negative Urine Ketones Trace H Urine Blood 2+ H Urine Nitrite Negative Urine Bilirubin Negative Urine Urobilinogen Negative Ur Leukocyte Esterase Negative Urine WBC (Auto) 12 Urine RBC (Auto) 2 Ur Epithelial Cells Rare Urine Bacteria Rare Urine Mucus Rare RPR Titer 12/28/17 07:00 WBC RBC Hgb Hct MCV MCH MCHC RDW Plt Count MPV Sodium Potassium Chloride Carbon Dioxide Anion Gap BUN Creatinine Creat Clearance w eGFR Random Glucose Calcium Total Bilirubin AST ALT Alkaline Phosphatase Total Protein Albumin Urine Color Urine Appearance Urine pH Ur Specific [place] Urine Protein Urine Glucose (UA) Urine Ketones Urine Blood Urine Nitrite Urine Bilirubin Urine Urobilinogen Ur Leukocyte Esterase Urine WBC (Auto) Urine RBC (Auto) Ur Epithelial Cells Urine Bacteria Urine Mucus RPR Titer Nonreactive alert and orieted anxious skin warm and dry ext no edema Assessment: 12/29/17 14:43 withdrawal syndrome Plan: continue detox as per protocol
[2017-12-29] MEDS: THIAMINE HCL 100 MG TABLET (FP) PO SCH (22:07)
[2017-12-29] MEDS: MELATONIN 5 MG TABLETS PO PRN (22:07)
[2017-12-29] MEDS ORDERED: chlordiazePOXIDE 5 MG CAPSULE PO SCH (23:00)
[2017-12-30] MEDS ORDERED: chlordiazePOXIDE 5 MG CAPSULE PO SCH ×2 (05:00)
[2017-12-30] MEDS: chlordiazePOXIDE 5 MG CAPSULE PO SCH ×4 (05:14→22:05)
[2017-12-30] MEDS ORDERED: METHADONE HCL 5 MG TABLET (FOR DETOX USE ONLY) PO ONE (10:00)
[2017-12-30] MEDS ORDERED: METHADONE HCL 5 MG TABLET (FOR DETOX USE ONLY) PO SCH (10:00)
--- NOTE | 2017-12-30 10:05 | PN ---
[facility] Progress Note (SOAP) Subjective: Anxiety, interrupted sleep and occasional sweats Objective: 12/30/17 10:04 Vital Signs 12/30/17 12/30/17 12/30/17 03:30 06:00 09:54 Temperature 97.9 F 98.2 F Pulse Rate 64 63 Respiratory 18 18 16 Rate Blood Pressure 118/69 122/74 Laboratory Last Values WBC 6.5 K/mm3 (4.0-10.0) 12/28/17 07:00 RBC 4.16 M/mm3 (3.60-5.2) 12/28/17 07:00 Hgb 12.1 GM/dL (10.7-15.3) 12/28/17 07:00 Hct 36.7 % (32.4-45.2) 12/28/17 07:00 MCV 88.1 fl (80-96) 12/28/17 07:00 MCH 29.1 pg (25.7-33.7) 12/28/17 07:00 MCHC 33.1 g/dl (32.0-36.0) 12/28/17 07:00 RDW 14.6 % (11.6-15.6) 12/28/17 07:00 Plt Count 284 K/MM3 (134-434) 12/28/17 07:00 MPV 11.4 fl (7.5-11.1) H 12/28/17 07:00 Sodium 140 mmol/L (136-145) 12/28/17 07:00 Potassium 3.5 mmol/L (3.5-5.1) 12/28/17 07:00 Chloride 106 mmol/L (98-107) 12/28/17 07:00 Carbon Dioxide 29 mmol/L (21-32) 12/28/17 07:00 Anion Gap 5 MMOL/L (8-16) L 12/28/17 07:00 BUN 12 mg/dL (7-18) 12/28/17 07:00 Creatinine 0.7 mg/dL (0.55-1.3) 12/28/17 07:00 Creat Clearance w eGFR > 60 (>60) 12/28/17 07:00 Random Glucose 96 mg/dL (74-106) 12/28/17 07:00 Calcium 8.4 mg/dL (8.5-10.1) L 12/28/17 07:00 Total Bilirubin 0.1 mg/dL (0.2-1) L 12/28/17 07:00 AST 12 U/L (15-37) L 12/28/17 07:00 ALT 13 U/L (13-61) 12/28/17 07:00 Alkaline Phosphatase 42 U/L (45-117) L 12/28/17 07:00 Total Protein 6.5 g/dl (6.4-8.2) 12/28/17 07:00 Albumin 3.2 g/dl (3.4-5.0) L 12/28/17 07:00 Urine Color Yellow 12/27/17 23:10 Urine Appearance Turbid 12/27/17 23:10 Urine pH 5.0 (5.0-8.0) 12/27/17 23:10 Ur Specific [place] 1.025 (1.001-1.035) 12/27/17 23:10 Urine Protein Negative (NEGATIVE) 12/27/17 23:10 Urine Glucose (UA) Negative (NEGATIVE) 12/27/17 23:10 Urine Ketones Trace (NEGATIVE) H 12/27/17 23:10 Urine Blood 2+ (NEGATIVE) H 12/27/17 23:10 Urine Nitrite Negative (NEGATIVE) 12/27/17 23:10 Urine Bilirubin Negative (<2.0 mg/dL) 12/27/17 23:10 Urine Urobilinogen Negative mg/dL (0.2-1.0) 12/27/17 23:10 Ur Leukocyte Esterase Negative (NEGATIVE) 12/27/17 23:10 Urine WBC (Auto) 12 /hpf (3-5) 12/27/17 23:10 Urine RBC (Auto) 2 /hpf (0-3) 12/27/17 23:10 Ur Epithelial Cells Rare /HPF (FEW) 12/27/17 23:10 Urine Bacteria Rare /hpf (NONE SEEN) 12/27/17 23:10 Urine Mucus Rare 12/27/17 23:10 RPR Titer Nonreactive (NONREACTIVE) 12/28/17 07:00 Labs noted Assessment: 12/30/17 10:04 Withdrawal sx Plan: Continue detox
[2017-12-30] MEDS: METHADONE HCL 5 MG TABLET (FOR DETOX USE ONLY) PO SCH (10:09)
[2017-12-30] MEDS: NICOTINE 14 MG/24 HOURS TOPICAL PATCH TD SCH (10:10)
[2017-12-30] MEDS: PRENATAL VITAMINS W/ FOLIC ACID TABLET (FP) PO SCH (10:12)
[2017-12-30] MEDS: chlordiazePOXIDE HCL 25 MG CAPSULE PO PRN (13:18)
[2017-12-30] MEDS: THIAMINE HCL 100 MG TABLET (FP) PO SCH (22:05)
[2017-12-30] MEDS: MELATONIN 5 MG TABLETS PO PRN (22:06)
[2017-12-30] MEDS ORDERED: chlordiazePOXIDE HCL 10 MG CAPSULE PO SCH (23:00)
[2017-12-31] MEDS ORDERED: chlordiazePOXIDE HCL 10 MG CAPSULE PO SCH ×2 (05:00)
[2017-12-31] MEDS: chlordiazePOXIDE HCL 10 MG CAPSULE PO SCH ×4 (05:05→22:12)
[2017-12-31] MEDS ORDERED: METHADONE HCL 5 MG TABLET (FOR DETOX USE ONLY) PO ONE (10:00)
[2017-12-31] MEDS ORDERED: METHADONE HCL 10 MG TABLET (FOR DETOX USE ONLY) PO SCH (10:00)
[2017-12-31] MEDS: METHADONE HCL 5 MG TABLET (FOR DETOX USE ONLY) PO SCH (10:05)
[2017-12-31] MEDS ORDERED: METHADONE HCL 10 MG TABLET (FOR DETOX USE ONLY) PO ONE (10:12)
[2017-12-31] MEDS: NICOTINE 14 MG/24 HOURS TOPICAL PATCH TD SCH (10:45)
[2017-12-31] MEDS: PRENATAL VITAMINS W/ FOLIC ACID TABLET (FP) PO SCH (10:45)
--- NOTE | 2017-12-31 12:51 | PN ---
S Progress Note (SOAP) Subjective: feeling better no tremor less sweat no gi distress no body aches Objective: 12/31/17 12:50 Vital Signs Temperature 97.2 F L 12/31/17 09:31 Pulse Rate 81 12/31/17 09:31 Respiratory Rate 18 12/31/17 09:31 Blood Pressure 101/74 12/31/17 09:31 O2 Sat by Pulse Oximetry (%) Laboratory Last Values WBC 6.5 K/mm3 (4.0-10.0) 12/28/17 07:00 RBC 4.16 M/mm3 (3.60-5.2) 12/28/17 07:00 Hgb 12.1 GM/dL (10.7-15.3) 12/28/17 07:00 Hct 36.7 % (32.4-45.2) 12/28/17 07:00 MCV 88.1 fl (80-96) 12/28/17 07:00 MCH 29.1 pg (25.7-33.7) 12/28/17 07:00 MCHC 33.1 g/dl (32.0-36.0) 12/28/17 07:00 RDW 14.6 % (11.6-15.6) 12/28/17 07:00 Plt Count 284 K/MM3 (134-434) 12/28/17 07:00 MPV 11.4 fl (7.5-11.1) H 12/28/17 07:00 Sodium 140 mmol/L (136-145) 12/28/17 07:00 Potassium 3.5 mmol/L (3.5-5.1) 12/28/17 07:00 Chloride 106 mmol/L (98-107) 12/28/17 07:00 Carbon Dioxide 29 mmol/L (21-32) 12/28/17 07:00 Anion Gap 5 MMOL/L (8-16) L 12/28/17 07:00 BUN 12 mg/dL (7-18) 12/28/17 07:00 Creatinine 0.7 mg/dL (0.55-1.3) 12/28/17 07:00 Creat Clearance w eGFR > 60 (>60) 12/28/17 07:00 Random Glucose 96 mg/dL (74-106) 12/28/17 07:00 Calcium 8.4 mg/dL (8.5-10.1) L 12/28/17 07:00 Total Bilirubin 0.1 mg/dL (0.2-1) L 12/28/17 07:00 AST 12 U/L (15-37) L 12/28/17 07:00 ALT 13 U/L (13-61) 12/28/17 07:00 Alkaline Phosphatase 42 U/L (45-117) L 12/28/17 07:00 Total Protein 6.5 g/dl (6.4-8.2) 12/28/17 07:00 Albumin 3.2 g/dl (3.4-5.0) L 12/28/17 07:00 Urine Color Yellow 12/27/17 23:10 Urine Appearance Turbid 12/27/17 23:10 Urine pH 5.0 (5.0-8.0) 12/27/17 23:10 Ur Specific [place] 1.025 (1.001-1.035) 12/27/17 23:10 Urine Protein Negative (NEGATIVE) 12/27/17 23:10 Urine Glucose (UA) Negative (NEGATIVE) 12/27/17 23:10 Urine Ketones Trace (NEGATIVE) H 12/27/17 23:10 Urine Blood 2+ (NEGATIVE) H 12/27/17 23:10 Urine Nitrite Negative (NEGATIVE) 12/27/17 23:10 Urine Bilirubin Negative (<2.0 mg/dL) 12/27/17 23:10 Urine Urobilinogen Negative mg/dL (0.2-1.0) 12/27/17 23:10 Ur Leukocyte Esterase Negative (NEGATIVE) 12/27/17 23:10 Urine WBC (Auto) 12 /hpf (3-5) 12/27/17 23:10 Urine RBC (Auto) 2 /hpf (0-3) 12/27/17 23:10 Ur Epithelial Cells Rare /HPF (FEW) 12/27/17 23:10 Urine Bacteria Rare /hpf (NONE SEEN) 12/27/17 23:10 Urine Mucus Rare 12/27/17 23:10 RPR Titer Nonreactive (NONREACTIVE) 12/28/17 07:00 lab noted Assessment: 12/31/17 12:50 mild withdrawal sx Plan: medically supervised detox
[2017-12-31] MEDS: MELATONIN 5 MG TABLETS PO PRN (22:12)
[2017-12-31] MEDS: THIAMINE HCL 100 MG TABLET (FP) PO SCH (23:53)
[2018-01-01] MEDS ORDERED: METHADONE HCL 5 MG TABLET (FOR DETOX USE ONLY) PO SCH ×2 (06:00→10:00)
[2018-01-01 09:11] VITALS: BP 100/62; PULSE 80; TEMP 98.6
[2018-01-01] MEDS: NICOTINE 14 MG/24 HOURS TOPICAL PATCH TD SCH (09:20)
[2018-01-01] MEDS: PRENATAL VITAMINS W/ FOLIC ACID TABLET (FP) PO SCH (09:21)
[2018-01-01] MEDS ORDERED: METHADONE HCL 10 MG TABLET (FOR DETOX USE ONLY) PO ONE (10:00)
[2018-01-01] MEDS ORDERED: METHADONE HCL 10 MG TABLET (FOR DETOX USE ONLY) PO SCH ×3 (10:00)
--- NOTE | 2018-01-01 11:26 | DS ---
[facility] Detox Discharge Summary Admission Date: 12/27/17 Discharge Date: 01/01/18 - History Present History: Alcohol Dependence, Cannabis Dependence, Opioid Dependence Additional Comments: Hx alcohol use disorder; heroin use disorder; Cannabis use disorder; Nicotine use disorder; Pertinent Past History: Hx anxiety and anemia - Physical Exam Results Vital Signs: Vital Signs Temperature 98.6 F 01/01/18 09:10 Pulse Rate 80 01/01/18 09:10 Respiratory Rate 18 01/01/18 09:10 Blood Pressure 100/62 01/01/18 09:10 O2 Sat by Pulse Oximetry (%) Pertinent Admission Physical Exam Findings: Admitted with withdrawal symptoms. Laboratory Tests 12/27/17 12/28/17 12/28/17 23:10 07:00 07:00 WBC 6.5 RBC 4.16 Hgb 12.1 Hct 36.7 MCV 88.1 MCH 29.1 MCHC 33.1 RDW 14.6 Plt Count 284 MPV 11.4 H Sodium 140 Potassium 3.5 Chloride 106 Carbon Dioxide 29 Anion Gap 5 L BUN 12 Creatinine 0.7 Creat Clearance w eGFR > 60 Random Glucose 96 Calcium 8.4 L Total Bilirubin 0.1 L AST 12 L ALT 13 Alkaline Phosphatase 42 L Total Protein 6.5 Albumin 3.2 L Urine Color Yellow Urine Appearance Turbid Urine pH 5.0 Ur Specific [place] 1.025 Urine Protein Negative Urine Glucose (UA) Negative Urine Ketones Trace H Urine Blood 2+ H Urine Nitrite Negative Urine Bilirubin Negative Urine Urobilinogen Negative Ur Leukocyte Esterase Negative Urine WBC (Auto) 12 Urine RBC (Auto) 2 Ur Epithelial Cells Rare Urine Bacteria Rare Urine Mucus Rare RPR Titer 12/28/17 07:00 WBC RBC Hgb Hct MCV MCH MCHC RDW Plt Count MPV Sodium Potassium Chloride Carbon Dioxide Anion Gap BUN Creatinine Creat Clearance w eGFR Random Glucose Calcium Total Bilirubin AST ALT Alkaline Phosphatase Total Protein Albumin Urine Color Urine Appearance Urine pH Ur Specific [place] Urine Protein Urine Glucose (UA) Urine Ketones Urine Blood Urine Nitrite Urine Bilirubin Urine Urobilinogen Ur Leukocyte Esterase Urine WBC (Auto) Urine RBC (Auto) Ur Epithelial Cells Urine Bacteria Urine Mucus RPR Titer Nonreactive Labs reviewed. - Treatment Hospital Course: Detox Protocol Followed (Alert and oriented x 3.), Detoxed Safely, Responded well, Discharged Condition Good - Medication Discharge Medications: Ambulatory Orders Buspirone HCl [Buspar -] 20 mg PO TID 10/18/17 - Diagnosis (1) Alcohol dependence with uncomplicated withdrawal Status: Acute (2) Opioid dependence with withdrawal Status: Acute (3) Anemia Status: Chronic Qualifiers: Anemia type: unspecified type Qualified Code(s): D64.9 - Anemia, unspecified (4) Anxiety Status: Chronic (5) Cannabis dependence Status: Chronic - AMA Did Patient Leave Against Medical Advice: No
[2018-01-02] MEDS ORDERED: METHADONE HCL 5 MG TABLET (FOR DETOX USE ONLY) PO ONE (06:00)
[2018-01-02] MEDS ORDERED: METHADONE HCL 10 MG TABLET (FOR DETOX USE ONLY) PO SCH ×2 (06:00)
== END 2018-01-01 09:30 | disposition home or self-care (01) | DRG 773 ==
LOC: YASAS 15:53 → Y6N 22:07
PROC: HZ2ZZZZ Detoxification Services for Substance Abuse Treatment (ICD-10-PCS; principal; 2017-12-27)
DX: F11.23 Opioid dependence with withdrawal (principal); F10.230 Alcohol dependence with withdrawal, uncomplicated; F12.20 Cannabis dependence, uncomplicated; F17.213 Nicotine dependence, cigarettes, with withdrawal; F41.9 Anxiety disorder, unspecified; F32.9 Major depressive disorder, single episode, unspecified; D64.9 Anemia, unspecified
CPT/HCPCS: 36415; 80053; 81003; 81015; 85027; 86593; 93005; 93010